=== PATIENT | female | born 1995 | race Caucasian/White ===

== ENCOUNTER 2020-05-24 15:22 | Outpatient (REF) | payer BC, SELFPAY | END 2020-05-24 15:23 | disposition home or self-care (01) | LOC: HO.LAB 15:22 | PROVIDERS: Visit Provider Internal Medicine | DX: Z20.828 Contact with and (suspected) exposure to other viral communicable diseases (principal) | CPT/HCPCS: C9803; U0003 ==

== ENCOUNTER 2020-06-13 13:23 | Outpatient (REF) | payer BC, SELFPAY | END 2020-06-13 13:24 | disposition home or self-care (01) | LOC: HO.LAB 13:23 | PROVIDERS: PCP Internal Medicine; Visit Provider Internal Medicine | DX: Z20.828 Contact with and (suspected) exposure to other viral communicable diseases (principal) | CPT/HCPCS: C9803; U0003 ==

== ENCOUNTER 2022-10-10 11:19 | Outpatient (REF) | payer OTHER, SELFPAY ==
--- NOTE | ~2022-10-10 | XR_ITS ---
EXAMINATION: XR LUMBOSACRAL SPINE CLINICAL INFORMATION: Pain COMPARISON: None available. TECHNIQUE: Three views of the lumbosacral spine. FINDINGS: There is mild curvature of the lumbar spine to the left. Bone alignment is otherwise normal. No fracture or dislocation. Normal disc spaces. Normal paraspinal soft tissues. XR/XR lumbar spine 2-3V IMPRESSION: Mild curvature of the lumbar spine to the left.
--- NOTE | ~2022-10-10 | XR_ITS ---
EXAMINATION: XR THORACOLUMBAR SPINE CLINICAL INFORMATION: Pain COMPARISON: None TECHNIQUE: 3 views of the thoracic spine FINDINGS: Bone alignment is normal. No fracture or dislocation. Normal disc spaces. Normal paraspinal soft tissues. XR/XR thoracic spine 2V IMPRESSION: Unremarkable exam.
[2022-10-10 13:57] LABS: MANUAL DIFF FLAG NO
[2022-10-10 14:05] LABS: Basophils Absolute Auto 0.1 X10*3/uL (0.0-0.2); Eosinophils Absolute Auto 0.7 X10*3/uL (0.0-0.4); Hematocrit 44.1 % (37.0-47.0); Hemoglobin 14.8 g/dl (12.0-16.0); Imm Gran Abs Auto 0.05 X10*3/uL (0.00-0.03); Imm Gran Pct Auto 0.4 % (0.0-0.4); Lymphocytes Absolute Auto 2.4 X10*3/uL (1.2-4.9); Lymphocytes Percent Auto 20.4 % (20-40); Mean Corpuscular HGB Conc 33.6 g/dl (31.0-35.0); Mean Corpuscular Hemoglobin 29.7 pg (27.0-33.0); Mean Corpuscular Volume 88.6 fL (80.0-98.0); Mean Platelet Volume 10.5 fL (9.4-12.3); Monocytes Absolute Auto 0.8 X10*3/uL (0.1-1.2); Monocytes Percent Auto 6.9 % (2-11); Neutrophils Absolute Auto 7.6 x10*3/uL (2.0-8.3); Neutrophils Percent Auto 65.3 % (45-73); Platelet Count 348 X10*3/uL (160-400); Red Blood Count 4.98 X10*6/uL (4.20-5.50); White Blood Count 11.6 X10*3/uL (4.8-10.8)
[2022-10-10 14:22] LABS: Alanine Aminotransferase 13 U/L (0-31); Anion Gap 13 (12-20); Aspartate Amino Transferase 16 U/L (5-31); Blood Urea Nitrogen 10 mg/dL (9-16); Calcium 9.7 mg/dL (8.4-10.2); Carbon Dioxide 24 mmol/L (22-29); Chloride 105 mmol/L (96-108); Cholesterol 166 mg/dL; Estimated Glomerular Filt Rate > 60; Glucose Fasting 97 mg/dL (60-99); HDL Cholesterol 39 mg/dL; LDL Cholesterol Calculated 101 mg/dl; Potassium 4.1 mmol/L (3.3-5.1); Sodium 138 mmol/L (135-145); Triglycerides 132 mg/dL
[2022-10-10 14:42] LABS: TSH reflex Free T4 0.89 uIU/mL (0.32-4.0); Vitamin D 25-OH Total 14.3 ng/mL (>30)
== END 2022-10-10 11:20 | disposition home or self-care (01) ==
LOC: HO.HMGCX 11:19
PROVIDERS: PCP Internal Medicine; Visit Provider Internal Medicine
DX: Z00.00 Encounter for general adult medical examination without abnormal findings (principal); M54.50 Low back pain, unspecified; E66.9 Obesity, unspecified; R53.83 Other fatigue; L40.9 Psoriasis, unspecified; Z83.3 Family history of diabetes mellitus
CPT/HCPCS: 36415; 72070; 72100; 80048; 80061; 82306; 84443; 84450; 84460; 85025

== ENCOUNTER → 2022-11-26 14:22 | Outpatient (BNVA) | payer OTHER, SELFPAY | PROVIDERS: PCP Internal Medicine; Visit Provider Neurological Surgery ==

== ENCOUNTER 2023-01-21 15:04 | Outpatient (REF) | payer OTHER, SELFPAY ==
--- NOTE | ~2023-01-21 | MR_ITS ---
EXAMINATION: MR LUMBAR SPINE WITHOUT CONTRAST CLINICAL INFORMATION: Walking with a limp. Constant low back pain. Right leg pain. Difficulty lying down. COMPARISON: X-ray lumbar spine from 10/10/2022. TECHNIQUE: MRI of the lumbar spine was obtained using routine sequences without contrast. FINDINGS: At the L4-L5 level, there is reduced intradiscal signal and mild disc space narrowing with a slight posterior subluxation. A generalized disc bulge is also evident. There is a large central disc extrusion severely compressing the thecal sac and both L5 nerve root at this level. Hypertrophic facet arthropathy also present. No significant foraminal narrowing evident. At the L5-S1 level, there is reduced intradiscal signal and endplate spurring with a mild diffuse disc bulge. Shallow right paracentral disc protrusion mildly impresses upon the right S1 nerve root. Hypertrophic facet arthropathy present without central canal stenosis or foraminal narrowing. The remaining lower thoracic and lumbar discs are well-hydrated without central canal stenosis or foraminal narrowing. The distal cord, conus tip, and cauda equina nerve roots are normal. There are no compression fractures or anterior subluxations. The marrow signal is fairly homogeneous. Mild leftward curvature of the thoracolumbar spine noted. The paraspinal soft tissues appear normal. MR/MR lumbar spine wo con IMPRESSION: 1. Large central disc extrusion at the L4-L5 level severely compressing the thecal sac and both L5 nerve roots. 2. Mild spondylosis at L5-S1 with a shallow right paracentral disc protrusion mildly impressing upon the right S1 nerve root.
== END 2023-01-21 15:05 | disposition home or self-care (01) ==
LOC: HO.MRI 15:04
PROVIDERS: PCP Internal Medicine; Visit Provider Neurological Surgery
DX: M54.50 Low back pain, unspecified (principal); M41.9 Scoliosis, unspecified
CPT/HCPCS: 72148

== ENCOUNTER 2023-05-16 11:23 | Outpatient (AMB) | payer OTHER, SELFPAY ==
[2023-05-16 11:28] VITALS: BP 122/78; PULSE 72; O2SAT 99; BMI 35.2
--- NOTE | 2023-05-16 11:28 | MHC.PC.OV ---
Vital Signs 05/16/23 11:28 Height 5 ft 1 in Weight 186 lb 6 oz BMI 35.2 BP 122/78 Blood Pressure Location Lt brachial Position Sitting Pulse 72 Pulse Source Pulse Oximeter Pulse Oximetry (%) 99 Oxygen Delivery Method Room Air Intake Visit Reasons: Possible bunion Intake Note: pt has a bone/joint pain on the outside of her left foot that is painful that has gotten worse over the year but this summer she may have injured it that has made the pain even worse pt is also c/o heart burn Allergies amoxicillin Allergy (Unknown, Verified 05/16/23 11:55) unknown cefprozil Allergy (Unknown, Verified 05/16/23 11:55) unknown Medication List - Last Reconciled 05/16/23 by Joceline Mcmahon MD calcium carbonate (Tums) 200 mg PO QID PRN cholecalciferol (vitamin D3) (Vitamin D3) 25 mcg PO DAILY escitalopram oxalate (Lexapro) 20 mg PO DAILY etonogestrel (Nexplanon) subdermal fluocinonide 0.05% 1 appl topical BID [Pepto-Bismol ] Tobacco use date assessed: 05/16/23 Dental Screening Dental Screen Date: 05/16/23 Did you have a dental visit in the last 12 months?: Yes Did you have a dental problem in the last 6 months where you did not have access to dental care?: No Was dental information given to patient?: Patient has dentist HPI Possible bunion HPI Details 28-year-old lady presenting today complaining of pain over left MTP joint. Patient states that she has been having this pain on and off the last year got worse after she started walking on the treadmill, wearing narrow or rubber shoes. Has not been taking any medication for the pain, but has started wearing wider shoes. [facility] Medical History Gastric reflux Scoliosis Vitamin D deficiency Lumbago Family history of diabetes mellitus in father Fatigue Obesity (BMI 30.0-34.9) Psoriasis of scalp Anxiety Annual physical exam Insomnia Surgical History History of appendectomy Family History Father HTN (hypertension) Diabetes mellitus Mental health disorder Brother No problems noted. Sister No problems noted. Sister No problems noted. Sister No problems noted. Sister No problems noted. Social History Household Members: Significant Other Housing: Apartment Alcohol intake: never Patient Tobacco Use Status: Never used Tobacco e-Cigarette/Vaping Use: Never Used service: No Current occupational status: employed Cognitive needs: No Hearing needs: No Vision needs: Yes Questionnaire Thrive Questionnaire Date Thrive assessed: 10/10/22 AUDIT C Alcohol Use Questionnaire (AUDIT-C) 1. How often do you have a drink containing alcohol?: 4 or more times a week 2. How many drinks containing alcohol do you have on a typical day when you are drinking?: 1 or 2 Total Score: 4 POOL-7 AMB Questionnaire POOL-7 Date POOL - 7 assessed: 10/10/22 Source: Developed by Drs. Abdirahman Gill, Denise Bermudez, Damian Delaney and colleagues, with an educational pascual from [employer]. Review of Systems Const All systems reviewed & are unremarkable except as noted in HPI and below Physical exam (Primary Care) Vital Signs: Last Vital Signs Pulse 72 05/16/23 11:28 BP 122/78 05/16/23 11:28 Pulse Ox 99 05/16/23 11:28 Oxygen Delivery Method Room Air 05/16/23 11:28 BMI result Body Mass Index 35.2 Tobacco/Smoking Status: Tobacco use Status Tobacco use date assessed 05/16/23 05/16/23 11:35 Patient Tobacco Use Status Never used Tobacco 05/16/23 11:35 e-Cigarette/Vaping Use Never Used 05/16/23 11:35 Thrive Assessment: Date of Thrive Assessment Date Thrive assessed 10/10/22 05/16/23 11:35 Const General: comfortable and no acute distress Nutritional Appearance: obese Orientation/consciousness: patient oriented x3 Limitations: no limitations Skin General skin exam: no rashes or lesions noted Neuro General: patient oriented x3 Extrem Other: Slight swelling and erythema over left MTP joint, area slightly tender to palpation Assessment and Plan Assessment & Plan (1) Sprain of metatarsophalangeal joint of left great toe: Code(s): S93.522A - Sprain of metatarsophalangeal joint of left great toe, initial encounter Plan: May try massaging Aleve cream to affected area to 2 3 times a day as needed. Avoid wearing wear shoes, wear wider open shoes. Return to the clinic if pain worsens Coding Level of Care Code Est Pt Level 3 (24269) Diagnoses Sprain of metatarsophalangeal joint of left great toe S93.522A
== END 2023-05-16 11:52 | disposition home or self-care (01) ==
PROVIDERS: PCP Internal Medicine; Visit Provider Internal Medicine
DX: S93.522A Sprain of metatarsophalangeal joint of left great toe, initial encounter (principal)
CPT/HCPCS: 99213

== ENCOUNTER 2023-06-05 06:46 | Day surgery (SDC) | payer OTHER, SELFPAY ==
[2023-05-19 11:45] VITALS: BP 127/60; PULSE 83; RESP 16; O2SAT 97; BMI 34.9
--- NOTE | 2023-05-19 12:09 | HO.ANESPROP2 ---
Documented by User: Shruthi Ram NP 05/19/23 12:17 HPI - Anesthesia Eval Consult details Narrative: 28yo F for L4-5 MicroLumbar discectomy No recent illness No CP/SOB with >4 mets. Activity only limited to back/LE pain GERD. With prn TUMS, pepto Reports slow to wake after GA at age 13 for ex lap PMFSH Active Problems All Active Problems Scoliosis (Acute) Vitamin D deficiency (Acute) Lumbago (Acute) Family history of diabetes mellitus in father (Acute) Fatigue (Acute) Obesity (BMI 30.0-34.9) (Acute) Psoriasis of scalp (Acute) Anxiety (Acute) Annual physical exam (Acute) Past Medical History Medical History Gastric reflux Scoliosis Vitamin D deficiency Lumbago Family history of diabetes mellitus in father Fatigue Obesity (BMI 30.0-34.9) Psoriasis of scalp Anxiety Annual physical exam Insomnia Family History Family History Father HTN (hypertension) Diabetes mellitus Mental health disorder Brother No problems noted. Sister No problems noted. Sister No problems noted. Sister No problems noted. Sister No problems noted. Surgical History Surgical History (Updated 05/19/23 @ 12:04 by Jaqueline Berrios RN) Hx of lymph node excision Hx of esophagogastroduodenoscopy Hx of colonoscopy History of appendectomy Social History Social History (Updated 05/19/23 @ 12:11 by Jaqueline Berrios RN) Household Members: Significant Other Housing: Apartment Are you a primary career resource technician to a significant other at home: No Do you presently have visiting nurse or other home services: No Alcohol intake: never Patient Tobacco Use Status: Never used Tobacco e-Cigarette/Vaping Use: Never Used Use of substances other than those prescribed or required for medical reasons: Yes Substance Use Type: Marijuana Substance Use Frequency: Occasionally Have you been hit, kicked, punched, or otherwise hurt by someone within the past year? If so, by whom?: No Are you DNR?: No Advance Directives: No Advance Directives Information Provided: Yes Advance Directives on File: No Recently lost weight without trying: No Nutrition Risks: No Nutritional Risk Patient : No FDLMP: last April : No Poor oral hygiene: No service: No Current occupational status: employed Cognitive needs: No Hearing needs: No Vision needs: Yes Meds Allergies Allergy/AdvReac Type Severity Reaction Status Date / Time amoxicillin Allergy Severe Hives, Verified 05/19/23 12:01 rash. ? throat closing cefprozil Allergy Severe hives,rash Verified 05/19/23 11:59 cephalexin Allergy Severe Hives,rash Verified 05/19/23 12:01 Home Medications Medication Instructions Recorded Confirmed Last Taken Type etonogestrel 68 mg subdermal subdermal 10/10/22 10/10/22 Unknown History implant (Nexplanon) fluocinonide 0.05 % topical cream 1 appl topical BID 10/10/22 10/10/22 Unknown History Pepto-Bismol 05/15/23 05/15/23 Unknown History calcium carbonate 200 mg calcium 200 mg PO QID PRN Gastric Reflux 05/15/23 05/15/23 Unknown History (500 mg) chewable tablet (Tums) cholecalciferol (vitamin D3) 25 50 mcg PO DAILY 05/15/23 05/19/23 Unknown History mcg (1,000 unit) capsule (Vitamin D3) escitalopram oxalate 20 mg tablet 20 mg PO DAILY 05/15/23 05/15/23 Unknown History (Lexapro) Exam Height,Weight and Vital Signs: Height 5 ft 1 in Weight 83.9 kg Last Vital Signs Pulse 83 05/19/23 11:45 Resp 16 05/19/23 11:45 BP 127/60 05/19/23 11:45 Pulse Ox 97 05/19/23 11:45 O2 Del Method Room Air 05/19/23 11:45 Pertinent Lab Results Pertinent Lab Results: Laboratory Tests 10/10/22 11:26 WBC 11.6 H Hgb 14.8 Hct 44.1 Plt Count 348 Sodium 138 Potassium 4.1 Chloride 105 Carbon Dioxide 24 BUN 10 Creatinine 0.76 Airway Loose/Missing/Broken Teeth: Yes (Right lower molar missing, 1 x crowned molar) Heart: RRR Lungs: CTAB Assessment and Plan Assessment Anesthesia Assessment: Anesthesia Plan Discussed and PAT Visit Documented by User: Dickson Brennan MD 06/05/23 07:31 PMFSH Active Problems All Active Problems Scoliosis (Acute) Vitamin D deficiency (Acute) Lumbago (Acute) Family history of diabetes mellitus in father (Acute) Fatigue (Acute) Obesity (BMI 30.0-34.9) (Acute) Psoriasis of scalp (Acute) Anxiety (Acute) Annual physical exam (Acute) Past Medical History Medical History Gastric reflux Scoliosis Vitamin D deficiency Lumbago Family history of diabetes mellitus in father Fatigue Obesity (BMI 30.0-34.9) Psoriasis of scalp Anxiety Annual physical exam Insomnia Family History Family History Father HTN (hypertension) Diabetes mellitus Mental health disorder Brother No problems noted. Sister No problems noted. Sister No problems noted. Sister No problems noted. Sister No problems noted. Family history of problems with anesthesia: No Surgical History Surgical History (Updated 05/19/23 @ 12:04 by Jaqueline Berrios RN) Hx of lymph node excision Hx of esophagogastroduodenoscopy Hx of colonoscopy History of appendectomy History of Problems with Anesthesia: No Social History Social History (Updated 05/19/23 @ 12:11 by Jaqueline Berrios RN) Household Members: Significant Other Housing: Apartment Are you a primary career resource technician to a significant other at home: No Do you presently have visiting nurse or other home services: No Alcohol intake: never Patient Tobacco Use Status: Never used Tobacco e-Cigarette/Vaping Use: Never Used Use of substances other than those prescribed or required for medical reasons: Yes Substance Use Type: Marijuana Substance Use Frequency: Occasionally Have you been hit, kicked, punched, or otherwise hurt by someone within the past year? If so, by whom?: No Are you DNR?: No Advance Directives: No Advance Directives Information Provided: Yes Advance Directives on File: No Recently lost weight without trying: No Nutrition Risks: No Nutritional Risk Patient : No FDLMP: last April : No Poor oral hygiene: No service: No Current occupational status: employed Cognitive needs: No Hearing needs: No Vision needs: Yes Meds Allergies Allergy/AdvReac Type Severity Reaction Status Date / Time amoxicillin Allergy Severe Hives, Verified 05/19/23 12:01 rash. ? throat closing cefprozil Allergy Severe hives,rash Verified 05/19/23 11:59 cephalexin Allergy Severe Hives,rash Verified 05/19/23 12:01 Home Medications Medication Instructions Recorded Confirmed Last Taken Type etonogestrel 68 mg subdermal subdermal 10/10/22 10/10/22 Unknown History implant (Nexplanon) fluocinonide 0.05 % topical cream 1 appl topical BID 10/10/22 10/10/22 Unknown History Pepto-Bismol 05/15/23 05/15/23 Unknown History calcium carbonate 200 mg calcium 200 mg PO QID PRN Gastric Reflux 05/15/23 05/15/23 Unknown History (500 mg) chewable tablet (Tums) cholecalciferol (vitamin D3) 25 50 mcg PO DAILY 05/15/23 05/19/23 Unknown History mcg (1,000 unit) capsule (Vitamin D3) escitalopram oxalate 20 mg tablet 20 mg PO DAILY 05/15/23 05/15/23 Unknown History (Lexapro) Assessment and Plan Final Anesthetic Review Family History of Problems with Anesthesia: No History of Problems with Anesthesia: No NPO: Yes ASA Class: II Final Preanesthetic Review: No Changes in Pt Med Stat, Meds/Allgs Chart Reviewed, Consent Obtained/Reviewed and Anes Risks/Benef Reviewed Patient Risk: Intermediate Procedure Risk: Intermediate Anesthetic Plan Anesthetic Plan: GA and Agree w/ Assess. and Plan Disposition: Standard PACU
--- NOTE | ~2023-06-05 | FL_ITS ---
EXAMINATION: XR FLUOROSCOPY WITH IMAGES CLINICAL INFORMATION: L4-L5 discectomy, right. COMPARISON: None available. TECHNIQUE: Fluoroscopy Supervised By: Dr. Jose De Jesus Bruno. Fluoroscopy Time: 0.1 minute. Cumulative Dose: 4.03 mGy. DAP: 0.0701 Gycm2. Images: 2. FINDINGS: Images demonstrate surgical instruments and probes posterior to the L4-L5 disc space FL/FL guidance in OR IMPRESSION: Fluoroscopy guidance for lumbar spine surgery
--- NOTE | 2023-06-05 07:18 | P.HPSUR_ITS ---
Pre-Procedural Eval Section A Date of Service: 06/05/23 The patient is an INPATIENT: No Changes since office visit: No Cold of Flu in the past 2 weeks, No New Medical Problems, No Changes in Medication and No Patient answered all questions The History & Physical has been completed within 30 days and I have reviewed it.: No Section B Chief Complaint: Scoliosis,low back pain, Allergies: Allergies Allergy/AdvReac Type Severity Reaction Status Date / Time amoxicillin Allergy Severe Hives, Verified 05/19/23 12:01 rash. ? throat closing cefprozil Allergy Severe hives,rash Verified 05/19/23 11:59 cephalexin Allergy Severe Hives,rash Verified 05/19/23 12:01 Review of Systems Sugical H&P ROS: Negative: Constitution, Cardiovascular, Respiratory, Neurological, Psychiatric, Hem-Onc, Allergic/Immunologic, Gastrointestinal, Genitourinary, Musculoskeletal, Integumentary, Endocrine and Eyes /Ears/Nose/Throat Exam Surgical H&P Exam: Not Evaluated: HEENT, Not Evaluated: Heart, Not Evaluated: Lungs, Not Evaluated: Extremities, Not Evaluated: Abdomen, Not Evaluated: Skin and Not Evaluated: Neurological Plan Diagnosis/Plan: Unchanged I have reviewed the history and physical and performed a pertinent physical examination on my patient. No changes have occurred unless specified. right L4-5 lumbar microdiskectomy Time Spent With Patient Time: Total time managing care of this patient today __9__ minutes.
[2023-06-05 07:25] LABS: UPreg QC Valid YES; Urine Pregnancy NEGATIVE (NEGATIVE)
[2023-06-05 07:46] VITALS: BP 117/74; PULSE 80; RESP 16; TEMP 37.1; O2SAT 97
[2023-06-05] MEDS: Gabapentin 300 MG CAPSULE PO (08:03)
[2023-06-05] MEDS: methocarbamoL 750 MG TABLET PO (08:09)
[2023-06-05] MEDS: vancomycin HCL 1,500 MG in 0.9 % Sodium Chloride 500 ML 333.33 MG IV (08:29)
[2023-06-05] MEDS: Lactated Ringers 1,000 ML 100 ML IVCONT (08:30)
--- NOTE | 2023-06-05 10:07 | W.PM.OPN ---
Operative Note Operative Note Date of Service: 06/05/23 Narrative: Preoperative diagnosis: L5 lumbar radiculopathy due to L4-5 disc herniation Postoperative diagnosis: Same Procedure: L4-5 lumbar microdiskectomy with microscope, right-sided approach Surgeon: Jose De Jesus Bruno MD, PhD Passenger Barge Master: goldy Voss This 28-year-old female suffering from a bilateral lumbar radiculopathy with the right side is more affected than the left side. An MRI shows a large extruded disc herniation compromising both nerve roots. The patient was offered a lumbar microdiskectomy to decompress the nerve root. The procedure complications were explained. The patient was consented. The patient was brought to the operating room and endotracheally intubated. The patient was turned in a prone position on the Thaddeus frame. Prepping and draping was done followed by time-out. A mid lumbar incision was made followed by release of the paravertebral muscles on the [] side to expose the [] interspace. An intraoperative x-rays obtained to confirm the correct level. The microscope was brought in. A L4 laminotomy was done followed by opening of the flavum ligament. The L5 nerve root was identified and retracted medially to expose the L4-5 disc space. I could palpate a disc herniation medial from the L5 nerve root, which I carefully removed with a pituitary. The disc space was inspected and any residual disc fragments were removed. This resulted in an excellent decompression of the L5 nerve root. Hemostasis was done. The microscope was removed. Marcaine was injected intramuscularly.The incision was closed in two layers. Steri-Strips used to approximate seizure. An op-site were taken there was used to cover the incision. All sponge and needle counts were correct. Patient was extubated and transported in stable condition to recovery room. this procedure was done with the aid of a physician construction project assistant who performed the initial exposure until the microscope was brought in and performed the closure of the incision. Anesthesia: General Blood loss: 10 mL Complications: None Specimen: None Disposition: Discharge home
--- NOTE | 2023-06-05 10:13 | PM.DS ---
DS: Providers Provider Date of Service: 06/05/23 Date of discharge: 06/05/23 Primary care physician: Joceline Mcmahon MD Admitting clinician: Jose De Jesus Bruno DS: Diagnosis Discharge Diagnosis (1) Lumbar disc herniation: Status: Acute DS: Summary Time Attestation Discharge coordination time: Less than 30 minutes Quality: Safe Use of Opioids Does Pt have an Active Cancer Diagnosis on the Problem List?: No Quality: Stroke Does the patient have a stroke diagnosis?: No Physical Exam Vital Signs: Vital Signs: Last Vital Signs Temp 98.8 F 06/05/23 07:46 Pulse 80 06/05/23 07:46 Resp 16 06/05/23 07:46 BP 117/74 06/05/23 07:46 Pulse Ox 97 06/05/23 07:46 O2 Del Method Room Air 06/05/23 07:46 BMI result Body Mass Index 34.9 DS: Data Data Completed and Pending Labs on day of discharge: Laboratory Results - last 24 hr 06/05/23 07:13 Urine Test NEGATIVE Discharge Plan Discharge Patient Disposition: Home, Self-Care Referrals: Joceline Mcmahon MD [Primary Care Provider] - 1 Week Discharge Medications: New docusate sodium [Colace] 100 mg capsule 100 mg PO BID Qty: 20 0RF oxycodone 5 mg tablet 5 mg PO Q4H PRN (Reason: pain) Qty: 30 0RF Rx Instructions: Partial Fill upon patient request. Continued cholecalciferol (vitamin D3) [Vitamin D3] 25 mcg (1,000 unit) Capsule 50 mcg PO DAILY escitalopram oxalate [Lexapro] 20 mg Tablet 20 mg PO DAILY calcium carbonate [Tums] 200 mg calcium (500 mg) Tablet,Chewable 200 mg PO QID PRN (Reason: Gastric Reflux) Pepto-Bismol fluocinonide 0.05 % cream 1 appl topical BID Nexplanon 68 mg implant subdermal Discharge Orders: Discharge Order (Routine); Ordered 06/05/23 Ordered By: Timo Alvarado Diet: Advance to usual diet Activity on Discharge: As tolerated Activity Restrictions/Additional Instructions: After your spinal surgery we ask you to observe the following restrictions/guidelines: Activity: It is normal to feel some discomfort as you increase your activity, but that will improve with time. We ask you avoid heavy lifting or acitivities that cause pain. As a general rule, 8lbs is a safe limit for lifting right after surgery. Walk as much as you feel comfortable but not to exhaustion. You will feel extra tired the first few days after surgery. Stay well hydrated. It is OK to walk up and down stairs You may return to driving when you are off narcotics (such as vicodin, oxycodone, dilaudid, etc), and you are back to normal functional capacity. If you have any concerns please check with office before driving. Return to work is specific to each patient and each surgery, so please speak with your doctor/PA at first follow up. Please bring paperwork such as FMLA at that time if you need it filled out. Medications: For optimum pain control, it is best to start with a combination of 500 mg of Tylenol every 4 hours with 600 mg of Motrin every 8 hours, and use narcotics as needed in between for breakthrough pain. We will give you a short supply of narcotics after surgery (usually one weeks worth). If you need more please call the office but do not use more than prescribed. You will need to give our office 48 hours notice if you need narcotics refilled and we do not fill narcotics on weekends or evenings. If you are on a narcotic, it is a good idea to take a stool softener such as colace or senna to avoid constipation If you take blood thinner such as aspirin, Plavix, Coumadin, Effient, Eliquis etc for conditions such as Afib, DVT, Pulmonary embolus, coronary disease, stents etc please speak with your surgeon about specific details as to when you can resume these medications. You can resume NSAIDs on post op day 1 (eg: Motrin, Naproxen, etc). Follow up: Please call the office, , after surgery to arrange a 3 week follow up for wound check. Wound Care: You may remove your dressing on the first day after surgery. You may leave open to air. Please do not remove the steri strips underneath. they will fall off on their own in one week. IT IS NORMAL FOR THE WOUND TO OOZE OR BE BLOODY FOR A FEW DAYS AFTER SURGERY. IF THIS HAPPENS JUST PLACE NEW DRESSING OVER IT TO AVOID STAINING CLOTHES. You may shower on post op day # 1 We ask that you do not let the water soak the wound. If it does get wet, just towel dry lightly. Please do not scrub your incision or place any type of chemical/ointment on the wound. No tub baths, pools or jacuzzis for one month. If you have any leaking or redness from your wound, or fevers, please call office
[2023-06-05 10:30] VITALS: BP 123/61; PULSE 89; RESP 18; TEMP 36.6; O2SAT 95
[2023-06-05 10:35] VITALS: BP 122/66; PULSE 84; RESP 22; O2SAT 100
[2023-06-05 10:40] VITALS: BP 129/67; PULSE 83; RESP 20; O2SAT 94
[2023-06-05 10:45] VITALS: BP 123/68; PULSE 81; RESP 20; O2SAT 93
[2023-06-05] MEDS: oxyCODONE HCl Immed Release 5 MG TABLET PO (10:46)
[2023-06-05 11:00] VITALS: BP 112/49; PULSE 76; RESP 20; TEMP 36.1; O2SAT 95
== END 2023-06-05 12:00 | disposition home or self-care (01) ==
PROVIDERS: Nurse Practitioner; PCP Internal Medicine; Visit Provider Neurological Surgery
PROC: (CPT 63030; principal; 2023-06-05 09:10)
DX: M54.16 Radiculopathy, lumbar region (principal); M54.50 Low back pain, unspecified; M41.9 Scoliosis, unspecified; M79.604 Pain in right leg; E55.9 Vitamin D deficiency, unspecified; R53.83 Other fatigue; E66.9 Obesity, unspecified; F41.9 Anxiety disorder, unspecified; Z79.899 Other long term (current) drug therapy; Z88.1 Allergy status to other antibiotic agents
CPT/HCPCS: 63030; 81025; J0131; J1100; J1885; J2371; J2405; J2704; J3371

== ENCOUNTER → 2023-06-05 06:46 | Outpatient (BNV) | payer OTHER, SELFPAY | PROVIDERS: PCP Internal Medicine; Visit Provider Neurological Surgery | DX: M51.26 Other intervertebral disc displacement, lumbar region (principal) | CPT/HCPCS: 63030; 99499 ==

== ENCOUNTER 2023-06-12 20:59 | Emergency (ER) | payer OTHER, SELFPAY ==
[2023-06-12 21:34] VITALS: BP 118/86; PULSE 78; RESP 18; TEMP 36.6; O2SAT 96; BMI 34.6
--- NOTE | 2023-06-12 23:29 | ED_ITS ---
HPI - General Adult General Chief complaint: Wound/Laceration Stated complaint: Back surg x 7 days stiches reopened Time Seen by Provider: 06/12/23 23:11 Source: patient, RN notes reviewed and old records reviewed Mode of arrival: ambulatory Limitations: no limitations History of Present Illness HPI narrative: 28-year-old female presents for evaluation of a wound check. Patient reports that she had lumbar surgery on 06/05/[address] Bruno She had an L4-L5 lumbar microdiskectomy Patient reports that just prior to arrival she had 1 states over not to be lumbar spinal wound She denies any fevers, chills pain No significant pain. She reports a dull soreness to the area that has been constant since the surgery No drainage from the area Related Data Home Medications Medication Instructions Recorded Confirmed etonogestrel 68 mg subdermal subdermal 10/10/22 10/10/22 implant (Nexplanon) fluocinonide 0.05 % topical cream 1 appl topical BID 10/10/22 10/10/22 Pepto-Bismol 05/15/23 05/15/23 calcium carbonate 200 mg calcium 200 mg PO QID PRN Gastric Reflux 05/15/23 05/15/23 (500 mg) chewable tablet (Tums) cholecalciferol (vitamin D3) 25 50 mcg PO DAILY 05/15/23 05/19/23 mcg (1,000 unit) capsule (Vitamin D3) escitalopram oxalate 20 mg tablet 20 mg PO DAILY 05/15/23 05/15/23 (Lexapro) Previous Rx's Medication Instructions Recorded docusate sodium 100 mg capsule 100 mg PO BID #20 caps 06/05/23 (Colace) oxycodone 5 mg tablet 5 mg PO Q4H PRN pain #30 tabs 06/05/23 Allergies Allergy/AdvReac Type Severity Reaction Status Date / Time amoxicillin Allergy Severe Hives, Verified 06/12/23 21:38 rash. ? throat closing cefprozil Allergy Severe hives,rash Verified 06/12/23 21:38 cephalexin Allergy Severe Hives,rash Verified 06/12/23 21:38 Review of Systems Constitutional: Constitutional: Denies chills, Denies fever(s) and Denies weakness Eyes: Eyes: Denies blurry vision Cardiovascular: Cardiovascular: Denies chest pain and Denies dyspnea Respiratory: Respiratory: Denies cough and Denies dyspnea Gastrointestinal: Gastrointestinal: Denies abdominal pain, Denies nausea and Denies vomiting Musculoskeletal: Musculoskeletal: Reports back pain and Denies tingling Integumentary/Breasts: Skin/Breast: Denies rash Neurologic: Denies tingling, Denies paresthesias and Denies weakness Psychiatric: Psychiatric: Denies suicidal ideation PMFSH Past Medical History Medical History (Updated 06/12/23 @ 23:32 by Mathew Conley) Gastric reflux Scoliosis Vitamin D deficiency Lumbago Family history of diabetes mellitus in father Fatigue Obesity (BMI 30.0-34.9) Psoriasis of scalp Anxiety Annual physical exam Insomnia Surgical History (Updated 05/19/23 @ 12:04 by Jaqueline Berrios, RN) Hx of lymph node excision Hx of esophagogastroduodenoscopy Hx of colonoscopy History of appendectomy Family History Family History Father HTN (hypertension) Diabetes mellitus Mental health disorder Brother No problems noted. Sister No problems noted. Sister No problems noted. Sister No problems noted. Sister No problems noted. Social History Social History (Updated 05/19/23 @ 12:11 by Jaqueline Berrios RN) Household Members: Significant Other Housing: Apartment Are you a primary doggy daycare activities director to a significant other at home: No Do you presently have visiting nurse or other home services: No Alcohol intake: never Comment: counts correct Patient Tobacco Use Status: Never used Tobacco e-Cigarette/Vaping Use: Never Used Substance Use Type: Marijuana Advance Directives: No Advance Directives Information Provided: No service: No Current occupational status: employed Cognitive needs: No Hearing needs: No Vision needs: Yes Physical Exam ED Vital Signs: Vital Signs - 24 hr 06/12/23 21:34 Temperature 97.9 F Pulse Rate 78 Respiratory Rate 18 Blood Pressure 118/86 Pulse Oximetry 96 Oxygen Delivery Method Room Air BMI result Body Mass Index 34.6 Const General: healthy appearing, comfortable, no acute distress, alert and awake Nutritional Appearance: well nourished Orientation/consciousness: patient oriented x3 HENMT Head: Yes normocephalic and Yes atraumatic Eyes Eyelids: Yes eyelids normal Conjunctivae: conjunctivae normal Sclerae: sclerae normal Corneas: corneas normal Pupils: Equal, round and reactive pupils present EOM: EOMs intact bilaterally Neck Neck: Yes full ROM Resp Effort & Inspection: normal respiratory effort, able to speak in complete sentences and not labored GI Inspection: No distended Palpation (GI): Soft to palpation, not firm, nontender, no guarding and not rigid Back/Spine/Pelvis Other: Patient has a 3 cm healing wound to the lumbar spine. The 2nd most suture has been opened. There is only approximately 2 mm area between the 2 wound edges. Sutures 1., 3, [address]. No drainage from the wound, no surrounding erythema Skin General skin exam: elasticity normal Neuro General: patient oriented x3 Cranial nerves: Yes Equal, round and reactive pupils present and Yes Bilaterally intact EOM present Cognition (Neuro): normal cognition Extrem Other: Moving all extremities well without any obvious deformities Medical Decision Making Medical Decision Making MDM Narrative: 28-year-old female presents for evaluation a wound check. One of her sutures has removed, the wound is still well approximated. Do not recommend any further closure. The patient was encouraged to keep the area clean and dry. She will follow-up with Neurosurgery office tomorrow Differential Diagnosis Differential Diagnoses: The differential diagnosis associated with the presentation includes Wound check Wound dehiscence Laceration Suture removal Discharge Plan Discharge Clinical Impression: Visit for wound check Patient Disposition: Home, Self-Care Additional Instructions: One of your sutures spontaneously open today. Three of them remain in place. The wound is still well approximated. I do not recommend any other form of closure. Keep the area clean and dry Call the office of Dr. Bruno' tomorrow morning to let them know Prescriptions: No Action cholecalciferol (vitamin D3) [Vitamin D3] 25 mcg (1,000 unit) Capsule 50 mcg PO DAILY escitalopram oxalate [Lexapro] 20 mg Tablet 20 mg PO DAILY calcium carbonate [Tums] 200 mg calcium (500 mg) Tablet,Chewable 200 mg PO QID PRN (Reason: Gastric Reflux) Pepto-Bismol docusate sodium [Colace] 100 mg capsule 100 mg PO BID Qty: 20 0RF oxycodone 5 mg tablet 5 mg PO Q4H PRN (Reason: pain) Qty: 30 0RF Rx Instructions: Partial Fill upon patient request. fluocinonide 0.05 % cream 1 appl topical BID Nexplanon 68 mg implant subdermal
[2023-06-12 23:42] VITALS: BP 116/66; PULSE 66; RESP 14; TEMP 36.8
== END 2023-06-12 23:45 | disposition home or self-care (01) ==
PROVIDERS: Emergency Provider Emergency Medicine; PCP Internal Medicine
DX: Z48.00 Encounter for change or removal of nonsurgical wound dressing (principal)
CPT/HCPCS: 99282; 99284

== ENCOUNTER 2023-06-13 13:57 | Outpatient (AMB) | payer OTHER, SELFPAY ==
--- NOTE | 2023-06-13 14:27 | HO.SPINEOV ---
Intake Intake Visit Reasons: ED f/up Allergies amoxicillin Allergy (Severe, Verified 06/12/23 21:38) Hives, rash. ? throat closing cefprozil Allergy (Severe, Verified 06/12/23 21:38) hives,rash cephalexin Allergy (Severe, Verified 06/12/23 21:38) Hives,rash Assessment & Plan Assessment & Plan (1) S/P spinal surgery: Code(s): Z98.890 - Other specified postprocedural states Plan POD: 8 Procedure: R sided L4-5 lumbar microdiskectomy Suzette is a 28-year-old female who is status post right-sided L4-5 lumbar microdiskectomy for lumbar radiculopathy. She reports that she was sitting at home yesterday on the couch watching a movie with her when she felt a cold liquid sensation on her low back after turning her body to grab something. Her inspected the incision site on her low back and was concerned that her stitches broken her wound opened up. She was seen in the emergency room last night, and the provider they recommended no further intervention as the wound was well approximated. Upon examination today her wound appears generally unremarkable. There is a very small linear area of scabbing which is very normal for a 2-3 cm incision site. A small area of broken scab was noted toward the top of the incision site. I ended up re-approximating the area with Steri-Strips after. She was encouraged that this is very normal for her surgery. Rufino Bruno MD,PhD [facility] Coding Level of Care Code Global (78975) Diagnoses S/P spinal surgery Z98.890
== END 2023-06-13 14:28 | disposition home or self-care (01) ==
PROVIDERS: PCP Internal Medicine; Visit Provider Physician Assistant
DX: Z98.890 Other specified postprocedural states (principal)
CPT/HCPCS: 99024

== ENCOUNTER → 2023-06-13 13:57 | Outpatient (BNVA) | payer OTHER, SELFPAY | PROVIDERS: PCP Internal Medicine; Visit Provider Physician Assistant ==

== ENCOUNTER 2023-06-27 11:37 | Outpatient (AMB) | payer OTHER, SELFPAY ==
--- NOTE | 2023-06-27 11:55 | HO.SPINEOV ---
Intake Intake Visit Reasons: 1st post op visit Allergies amoxicillin Allergy (Severe, Verified 06/12/23 21:38) Hives, rash. ? throat closing cefprozil Allergy (Severe, Verified 06/12/23 21:38) hives,rash cephalexin Allergy (Severe, Verified 06/12/23 21:38) Hives,rash Assessment & Plan Assessment & Plan (1) S/P spinal surgery: Code(s): Z98.890 - Other specified postprocedural states Plan Procedure: R sided L4-5 lumbar microdiskectomy Suzette comes in today for her 2nd postoperative visit. She reports she is very satisfied with the surgery and feels much better than she did preoperatively. The patient reports she is up walking around and completing the majority of her ADLs. She has no numbness/tingling/weakness/burning. No issues with ambulation. No other concerns. No neurological deficits. Patient is able to ambulate well, rises from a seated position without difficulty. Incision sites are closed and well healed, well approximated after last visit. There is no need for further routine follow-up for this patient. I provided her with a return to work note. She was advised she may always return to see us if she needs to in the future for any new symptoms. Rufino Bruno MD,PhD [facility] Coding Level of Care Code Global (49716) Diagnoses S/P spinal surgery Z98.890
== END 2023-06-27 12:13 | disposition home or self-care (01) ==
PROVIDERS: PCP Internal Medicine; Visit Provider Physician Assistant
DX: Z98.890 Other specified postprocedural states (principal)
CPT/HCPCS: 99024

== ENCOUNTER → 2023-06-27 11:37 | Outpatient (BNVA) | payer OTHER, SELFPAY | PROVIDERS: PCP Internal Medicine; Visit Provider Physician Assistant ==

== ENCOUNTER 2023-09-26 08:24 | Outpatient (AMB) | payer OTHER, SELFPAY ==
[2023-09-26 08:39] VITALS: BP 92/60; PULSE 81; O2SAT 98; BMI 36.3
--- NOTE | 2023-09-26 08:39 | A.OFFPC_ITS ---
Vital Signs 09/26/23 08:39 Height 5 ft 1 in Weight 192 lb BMI 36.3 BP 92/60 Blood Pressure Location Lt brachial Position Sitting Pulse 81 Pulse Source Pulse Oximeter Pulse Oximetry (%) 98 Oxygen Delivery Method Room Air Intake Visit Reasons: f/u lexapro med Intake Note: Pt is here today for a f/u on her lexapro Allergies amoxicillin Allergy (Severe, Verified 09/26/23 08:55) Hives, rash. ? throat closing cefprozil Allergy (Severe, Verified 09/26/23 08:55) hives,rash cephalexin Allergy (Severe, Verified 09/26/23 08:55) Hives,rash Medication List - Last Reconciled 09/26/23 by Joceline Mcmahon MD calcium carbonate (Tums) 200 mg PO QID PRN cholecalciferol (vitamin D3) (Vitamin D3) 50 mcg PO DAILY docusate sodium (Colace) 100 mg PO BID escitalopram oxalate (Lexapro) 20 mg PO DAILY fluocinonide 0.05% 1 appl topical BID [Pepto-Bismol ] Tobacco use date assessed: 09/26/23 Dental Screening Dental Screen Date: 09/26/23 Did you have a dental visit in the last 12 months?: Yes Did you have a dental problem in the last 6 months where you did not have access to dental care?: No Was dental information given to patient?: Patient has dentist HPI f/u lexapro med HPI Details 28-year-old lady with anxiety disorder, currently on escitalopram 20 mg once a day, here today for her follow-up. She patient states that she has been seeing a psychiatrist online and would like to see if she can just continue seeing me instead. Requesting a refill on her escitalopram 20 mg daily which has been helping control her anxiety symptoms. She takes it in the morning and does notice that she gets tired easily when she takes it in the morning, advised to take it now at bedtime.. She also has obesity, trying to lose weight with diet and exercise. Has history of vitamin-D deficiency, now currently taking cholecalciferol 50 mcg once a day . [facility] Medical History (Updated 09/26/23 @ 09:11 by Joceline Mcmahon MD) Gastric reflux Scoliosis Vitamin D deficiency Lumbago Family history of diabetes mellitus in father Fatigue Obesity (BMI 30.0-34.9) Psoriasis of scalp Anxiety Annual physical exam Insomnia Surgical History (Updated 09/26/23 @ 09:11 by Joceline Mcmahon MD) Hx of lumbar discectomy Hx of lymph node excision Hx of esophagogastroduodenoscopy Hx of colonoscopy History of appendectomy Family History Father HTN (hypertension) Diabetes mellitus Mental health disorder Brother No problems noted. Sister No problems noted. Sister No problems noted. Sister No problems noted. Sister No problems noted. Social History (Updated 05/19/23 @ 12:11 by Jaqueline Berrios RN) Household Members: Significant Other Housing: Apartment Are you a primary transitional care liaison to a significant other at home: No Do you presently have visiting nurse or other home services: No Alcohol intake: never Comment: counts correct Patient Tobacco Use Status: Never used Tobacco e-Cigarette/Vaping Use: Never Used Substance Use Type: Marijuana service: No Current occupational status: employed Cognitive needs: No Hearing needs: No Vision needs: Yes Questionnaire PHQ-9 Over the last 2 weeks, how often have you been bothered by any of the following problems? 1. Little interest or pleasure in doing things: not at all 2. Feeling down, depressed, or hopeless: not at all 3. Trouble falling or staying asleep, or sleeping too much: not at all 4. Feeling tired or having little energy: several days 5. Poor appetite or overeating: not at all 6. Feeling bad about yourself - or that you are a failure or have let yourself or your family down: not at all 7. Trouble concentrating on things, such as reading the newspaper or watching television: not at all 8. Moving or speaking so slowly that other people could have noticed. Or the opposite - being so fidgety or restless that you have been moving around a lot more than usual: not at all 9. Thoughts that you would be better off or of hurting yourself in some way: not at all Total score: 1 Depression Screening Interpretation: Negative Depression Screening Done: Yes 50388 - PHQ-9 Billing: Yes Source: Developed by Drs. Abdirahman Gill, Denise B.Damian Snider and colleagues, with an educational pascual from [email or web address]. Thrive Questionnaire Date Thrive assessed: 09/26/23 I am a: Patient What is your living situation today?: I have a steady place to live Within the past 12 months, did the food you bought not last and you didn't have the money to get more?: Never true Within the past 12 months, did you worry whether your food would run out before you got money to buy more?: Never true Do you have trouble paying for medicines?: No Do you have trouble getting transportation to medical appointments?: No Do you have trouble paying your heating and electricity bill?: No Do you have trouble taking care of your child, family member or friend?: No Do you have trouble with day-to-day activities such as bathing, preparing meals, shopping, managing finances, etc.?: No Are you currently unemployed and looking for a job?: No Are you interested in more education?: No THRIVE Score: 0 AUDIT C Alcohol Use Questionnaire (AUDIT-C) 1. How often do you have a drink containing alcohol?: Monthly or less 2. How many drinks containing alcohol do you have on a typical day when you are drinking?: 1 or 2 3. How often do you have six or more drinks on one occasion?: Never Total Score: 1 POOL-7 AMB Questionnaire POOL-7 Date POOL - 7 assessed: 09/26/23 Feeling nervous, anxious, or on edge: 0 = Not at all Not being able to stop or control worryin = Several days Worrying too much about different things: 0 = Not at all Trouble relaxin = Not at all Being so restless that it is hard to sit still: 0 = Not at all Becoming easily annoyed or irritable: 1 = Several days Feeling afraid as if something awful might happen: 0 = Not at all Total POOL-7 score (0-4 normal; 5-9 mild; 10-14 moderate; 15-21 severe): 2 Source: Developed by Drs. Abdirahman Gill, Damian De Santiago and colleagues, with an educational pascual from [email or web address]. POOL-7 Assessment Billing POOL-7 Assessment Tool: POOL-7 Assessment 03752 Review of Systems Const Denies fever(s), Denies headache(s) and Denies weakness Eyes Denies change in vision ENT Denies dizziness, Denies headache(s) and Denies nasal congestion Card Denies chest pain, Denies lightheadedness, Denies palpitations and Denies dyspnea Resp Denies chest congestion, Denies cough and Denies dyspnea GI Denies abdominal pain, Denies change in bowel habits and Denies heartburn Reports no additional complaints Musc Reports no additional complaints Neuro Denies dizziness, Denies headache(s) and Denies weakness Psych Reports as per HPI Endo Denies polydipsia, Denies polyuria and Denies palpitations Physical exam (Primary Care) Vital Signs: Last Vital Signs Pulse 81 09/26/23 08:39 BP 92/60 09/26/23 08:39 Pulse Ox 98 09/26/23 08:39 Oxygen Delivery Method Room Air 09/26/23 08:39 BMI result Body Mass Index 36.3 Tobacco/Smoking Status: Tobacco use Status Tobacco use date assessed 09/26/23 09/26/23 08:44 Patient Tobacco Use Status Never used Tobacco 09/26/23 08:44 e-Cigarette/Vaping Use Never Used 09/26/23 08:44 Depression Screening Interpretation: Negative Thrive Assessment: Date of Thrive Assessment Date Thrive assessed 10/10/22 09/26/23 08:44 Const General: no acute distress and alert Orientation/consciousness: patient oriented x3 HENMT Ears: external ears normal General nose exam: Normal external nose present Mouth: moist mucous membranes Eyes General: appearance normal, both eyes and all related structures Neck Neck: Yes full ROM, Yes no lymphadenopathy and Yes supple Resp Effort & Inspection: normal respiratory effort and able to speak in complete sentences Auscultation: clear to auscultation bilaterally Cardio Rate: regular rate Rhythm: regular rhythm Heart sounds: S1 normal heart sound present and S2 normal heart sound present GI Palpation (GI): Soft to palpation, nontender and no masses Auscultation: normal bowel sounds Back/Spine/Pelvis Back: No back tenderness Neuro General: patient oriented x3, gait normal, tone normal, moves all extremities and no focal motor deficits Extrem General: Yes full ROM, Yes no joint enlargement, Yes no clubbing, cyanosis or edema and Yes no calf tenderness Psych Appearance: grossly normal and well kempt Mental Status: mental status grossly normal Speech and movement: Normal speech and movement present Affect: normal affect Attitude: cooperative Thought process: Normal thought process present Thought content: Normal thought content present Assessment and Plan Assessment & Plan (1) Anxiety: Code(s): F41.9 - Anxiety disorder, unspecified Plan: Stable controlled on citalopram 20 mg taken once a day. Advised to start taking it at night as it has been making her feel more tired than usual. Will see her for follow-up later in the summer (2) Hx of lumbar discectomy: Code(s): Z98.890 - Other specified postprocedural states Plan: Done May 2023, with good results. Letter was sent to her employer recommending that she be provided with an ergonomic chair with added lumbar support (3) Vitamin D deficiency: Code(s): E55.9 - Vitamin D deficiency, unspecified Plan: Will check another vitamin-D level, continue taking vitamin-D 3 at 50 mcg once daily (4) Obesity (BMI 30.0-34.9): Code(s): E66.9 - Obesity, unspecified Plan: Discussed need to increase activity and weight loss. Eat Mediterranean diet, limit foods high in fat, sugar, and calories, eat slowly, pay attention to portion sizes, plan your meals ahead of time, start regular physical activity 150 minutes of moderate intensity exercise or 90 minutes/week of vigorous exercise (5) History of degenerative disc disease: Code(s): Z87.39 - Personal history of other diseases of the musculoskeletal system and connective tissue Plan: Had lumbar microdiskectomy done last May 2023, with good results. Letter was sent to her employer recommending that she be provided with an ergonomic chair with added lumbar support Orders: Orders Complete Blood Count Auto Diff 10/05/23 E55.9 - Vitamin D deficiency, unspecified, E66.9 - Obesity, unspecified, F41.9 - Anxiety disorder, unspecified, Z00.00 - Encounter for general adult medical examination without abnormal findings, Z83.3 - Family history of diabetes mellitus Alanine Aminotransferase 10/05/23 E55.9 - Vitamin D deficiency, unspecified, E66.9 - Obesity, unspecified, F41.9 - Anxiety disorder, unspecified, Z00.00 - Encounter for general adult medical examination without abnormal findings, Z83.3 - Family history of diabetes mellitus Vitamin D 25-OH Total 10/05/23 E55.9 - Vitamin D deficiency, unspecified, E66.9 - Obesity, unspecified, F41.9 - Anxiety disorder, unspecified, Z00.00 - Encounter for general adult medical examination without abnormal findings, Z83.3 - Family history of diabetes mellitus Aspartate Amino Transferase 10/05/23 E55.9 - Vitamin D deficiency, unspecified, E66.9 - Obesity, unspecified, F41.9 - Anxiety disorder, unspecified, Z00.00 - Encounter for general adult medical examination without abnormal findings, Z83.3 - Family history of diabetes mellitus Basic Metabolic Panel Fasting 10/05/23 E55.9 - Vitamin D deficiency, unspecified, E66.9 - Obesity, unspecified, F41.9 - Anxiety disorder, unspecified, Z00.00 - Encounter for general adult medical examination without abnormal findings, Z83.3 - Family history of diabetes mellitus Lipid Panel 10/05/23 E55.9 - Vitamin D deficiency, unspecified, E66.9 - Obesity, unspecified, F41.9 - Anxiety disorder, unspecified, Z00.00 - Encounter for general adult medical examination without abnormal findings, Z83.3 - Family history of diabetes mellitus Medications: New escitalopram oxalate (Lexapro) 20 mg PO DAILY 90 tabs 1RF Coding Level of Care Code Est Pt Level 4 (34314) Diagnoses Anxiety F41.9 Hx of lumbar discectomy Z98.890 Vitamin D deficiency E55.9 Obesity (BMI 30.0-34.9) E66.9 History of degenerative disc disease Z87.39 Additional Codes POOL-7 Assessment Billing - POOL-7 Assessment Tool: POOL-7 Assessment 89986 ([id number])
== END 2023-09-26 09:09 | disposition home or self-care (01) ==
PROVIDERS: PCP Internal Medicine; Visit Provider Internal Medicine
DX: E55.9 Vitamin D deficiency, unspecified (principal); Z98.890 Other specified postprocedural states; E66.9 Obesity, unspecified; Z68.36 Body mass index [BMI] 36.0-36.9, adult; F41.9 Anxiety disorder, unspecified; Z87.39 Personal history of other diseases of the musculoskeletal system and connective tissue
CPT/HCPCS: 99214

== ENCOUNTER 2023-10-16 10:58 | Outpatient (AMB) | payer OTHER, SELFPAY ==
--- NOTE | 2023-10-16 11:02 | MHC.PC.OV ---
Vital Signs 10/16/23 11:05 Height 5 ft 1 in Weight 192 lb BMI 36.3 BP 110/66 Blood Pressure Location Rt brachial Position Sitting Pulse 91 Pulse Source Pulse Oximeter Pulse Oximetry (%) 97 Oxygen Delivery Method Room Air Intake Visit Reasons: Annual PE <40 yrs of age Intake Note: Pt is here today for her PE: Last papsmear 05/02/22 Is last menstrual period known: Yes Last menstrual period: 10/10/23 Allergies amoxicillin Allergy (Severe, Verified 10/16/23 11:12) Hives, rash. ? throat closing cefprozil Allergy (Severe, Verified 10/16/23 11:12) hives,rash cephalexin Allergy (Severe, Verified 10/16/23 11:12) Hives,rash Tobacco use date assessed: 10/16/23 Dental Screening Dental Screen Date: 10/16/23 Did you have a dental visit in the last 12 months?: Yes Did you have a dental problem in the last 6 months where you did not have access to dental care?: No Was dental information given to patient?: Patient has dentist HPI Annual PE <40 yrs of age HPI Details 28-year-old lady here today for her physical exam. She had her last Pap smear done 05/02/22 by her OBGYN at [facility], came back negative. She is currently being seen by Dr. Solis for scalp psoriasis. Found to have vitamin-D deficiency on last physical exam , now taking cholecalciferol 50 mcg daily She has been seen by [facility], and had an endoscopy done several years ago which she states showed presence of a hiatal hernia with reflux. Has been having intermittent episodes of heartburn symptoms usually at night, and complains of irregular bowel movements, with abdominal bloating and cramps. Has been diagnosed to have IBS in the past when she was a child and previously was on dicyclomine which was helping. [facility] Medical History Gastric reflux Scoliosis Vitamin D deficiency Lumbago Family history of diabetes mellitus in father Fatigue Obesity (BMI 30.0-34.9) Psoriasis of scalp Anxiety Annual physical exam Insomnia Surgical History Hx of lumbar discectomy Hx of lymph node excision Hx of esophagogastroduodenoscopy Hx of colonoscopy History of appendectomy Family History Father HTN (hypertension) Diabetes mellitus Mental health disorder Brother No problems noted. Sister No problems noted. Sister No problems noted. Sister No problems noted. Sister No problems noted. Social History Household Members: Significant Other Housing: Apartment Are you a primary home health care provider to a significant other at home: No Do you presently have visiting nurse or other home services: No Alcohol intake: never Comment: counts correct Patient Tobacco Use Status: Never used Tobacco e-Cigarette/Vaping Use: Never Used Substance Use Type: Marijuana service: No Current occupational status: employed Cognitive needs: No Hearing needs: No Vision needs: Yes Female Reproductive History Menstrual Date of last menstrual period: 10/10/23 Questionnaire PHQ-9 Over the last 2 weeks, how often have you been bothered by any of the following problems? 1. Little interest or pleasure in doing things: not at all 2. Feeling down, depressed, or hopeless: not at all 3. Trouble falling or staying asleep, or sleeping too much: not at all 4. Feeling tired or having little energy: not at all 5. Poor appetite or overeating: not at all 6. Feeling bad about yourself - or that you are a failure or have let yourself or your family down: not at all 7. Trouble concentrating on things, such as reading the newspaper or watching television: not at all 8. Moving or speaking so slowly that other people could have noticed. Or the opposite - being so fidgety or restless that you have been moving around a lot more than usual: not at all 9. Thoughts that you would be better off or of hurting yourself in some way: not at all Total score: 0 Depression Screening Interpretation: Negative Depression Screening Done: Yes 44848 - PHQ-9 Billing: Yes Source: Developed by Drs. Abdirahman Gill, Denise Bermudez, Damian Delaney and colleagues, with an educational pascual from [employer]. Thrive Questionnaire Date Thrive assessed: 10/16/23 I am a: Patient What is your living situation today?: I have a steady place to live Within the past 12 months, did the food you bought not last and you didn't have the money to get more?: Never true Within the past 12 months, did you worry whether your food would run out before you got money to buy more?: Never true Do you have trouble paying for medicines?: No Do you have trouble getting transportation to medical appointments?: No Do you have trouble paying your heating and electricity bill?: No Do you have trouble taking care of your child, family member or friend?: No Do you have trouble with day-to-day activities such as bathing, preparing meals, shopping, managing finances, etc.?: No Are you currently unemployed and looking for a job?: No Are you interested in more education?: No THRIVE Score: 0 POOL-7 AMB Questionnaire POOL-7 Date POOL - 7 assessed: 10/16/23 Feeling nervous, anxious, or on edge: 0 = Not at all Not being able to stop or control worryin = Not at all Worrying too much about different things: 0 = Not at all Trouble relaxin = Not at all Being so restless that it is hard to sit still: 0 = Not at all Becoming easily annoyed or irritable: 0 = Not at all Feeling afraid as if something awful might happen: 0 = Not at all Total POOL-7 score (0-4 normal; 5-9 mild; 10-14 moderate; 15-21 severe): 0 Source: Developed by Drs. Abdirahman Gill, Denise Bermudez, Damian Delaney and colleagues, with an educational pascual from [employer]. POOL-7 Assessment Billing POOL-7 Assessment Tool: POOL-7 Assessment 00021 Review of Systems Const Denies fever(s), Denies headache(s) and Denies weakness Eyes Details: Currently being seen at [facility] , was told that she has unspecified opacities in both eye field, currently being watched, no change in vision Denies change in vision ENT Denies dizziness, Denies headache(s) and Denies nasal congestion Card Denies chest pain, Denies lightheadedness, Denies palpitations and Denies dyspnea Resp Denies chest congestion, Denies cough and Denies dyspnea GI Reports as per HPI Details: CURRENTLY GOES TO [facility] FOR ROUTINE PAP AND PELVIC EXAM, HAS AN APPOINTMENT ALREADY SCHEDULED FOR APRIL THIS YEAR Reports no additional complaints and Reports as per HPI Musc Reports no additional complaints Skin/Breast Denies breast swelling, Denies breast pain, Denies breast mass, Denies lesions and Denies rash Neuro Denies dizziness, Denies headache(s) and Denies weakness Psych Reports as per HPI Endo Denies polydipsia, Denies polyuria and Denies palpitations Chavez/Lymph Reports no additional complaints Aller/Immun Reports no additional complaints Physical exam (Primary Care) Vital Signs: Last Vital Signs Pulse 91 10/16/23 11:05 BP 110/66 10/16/23 11:05 Pulse Ox 97 10/16/23 11:05 Oxygen Delivery Method Room Air 10/16/23 11:05 BMI result Body Mass Index 36.3 Tobacco/Smoking Status: Tobacco use Status Tobacco use date assessed 10/16/23 10/16/23 11:04 Patient Tobacco Use Status Never used Tobacco 10/16/23 11:04 e-Cigarette/Vaping Use Never Used 10/16/23 11:04 Depression Screening Interpretation: Negative Thrive Assessment: Date of Thrive Assessment Date Thrive assessed 09/26/23 10/16/23 11:04 Const General: no acute distress and alert Orientation/consciousness: patient oriented x3 HENMT Ears: external ears normal General nose exam: Normal external nose present Mouth: moist mucous membranes Eyes General: appearance normal, both eyes and all related structures Neck Neck: Yes full ROM, Yes no lymphadenopathy and Yes supple Chest Chest palpation & inspection: normal inspection of the chest and normal palpation of entire chest wall Breast/axilla palpation: normal palpation of the breasts and normal palpation of the axillae Resp Effort & Inspection: normal respiratory effort and able to speak in complete sentences Auscultation: clear to auscultation bilaterally Cardio Rate: regular rate Rhythm: regular rhythm Heart sounds: S1 normal heart sound present and S2 normal heart sound present GI Palpation (GI): Soft to palpation, nontender and no masses Auscultation: normal bowel sounds Back/Spine/Pelvis Back: No back tenderness Skin General skin exam: no rashes or lesions noted Neuro General: patient oriented x3, gait normal, tone normal, moves all extremities and no focal motor deficits Extrem General: Yes full ROM, Yes no joint enlargement, Yes no clubbing, cyanosis or edema and Yes no calf tenderness Psych Appearance: grossly normal and well kempt Mental Status: mental status grossly normal Speech and movement: Normal speech and movement present Affect: normal affect Attitude: cooperative Thought process: Normal thought process present Thought content: Normal thought content present Assessment and Plan Assessment & Plan (1) Annual physical exam: Code(s): Z00.00 - Encounter for general adult medical examination without abnormal findings Plan: Reminded patient to get her fasting labs done, already ordered. Continue regular dental visit every 6 months and regular eye exams, at least every 2 years. T continue with taking vitamin-D 3 supplements, regular exercise recommended. Up-to-date with her cervical cancer screening, goes to [facility], last done 2021 with negative findings.. Has had COVID vaccines but does not get the booster anymore, reminded to get yearly flu vaccine, up-to-date with her childhood vaccines, up-to-date with her Tdap. (2) Vitamin D deficiency: Code(s): E55.9 - Vitamin D deficiency, unspecified Plan: Check vitamin-D level, continue with cholecalciferol 50 mcg daily (3) Obesity (BMI 30.0-34.9): Code(s): E66.9 - Obesity, unspecified Plan: Discussed need to increase activity and wt reduction. Recommended focusing on improving your health instead of dieting. : Eat Mediterranean diet, limit foods high in fat, sugar, and calories, eat slowly, pay attention to portion sizes, plan your meals ahead of time, start regular physical activity 150 minutes of moderate intensity exercise or 90 minutes/week of vigorous exercise (4) Psoriasis of scalp: Comment: seen by Dr Bill Code(s): L40.9 - Psoriasis, unspecified Plan: Currently followed by Dr. Sharpe uses fluocinonide 0.05% cream as needed (5) Anxiety: Code(s): F41.9 - Anxiety disorder, unspecified Plan: Doing well on escitalopram 20 mg once a day (6) Immunity status testing: Code(s): Z01.84 - Encounter for antibody response examination Plan: Ordered hepatitis-B surface antibody titer (7) Hiatal hernia: Code(s): K44.9 - Diaphragmatic hernia without obstruction or gangrene Plan: Advised to eat slowly, stay upright after eating, avoid wearing tight clothing, (8) Heartburn: Code(s): R12 - Heartburn Plan: Prescription sent for omeprazole 20 mg per capsule to take once a day an hour before eating, avoidance of triggers for heartburn such as tomato based sauces, grilled fried foods, highly spiced foods. (9) Irritable bowel syndrome with mixed bowel habits: Code(s): K58.2 - Mixed irritable bowel syndrome Plan: Prescription sent for dicyclomine 20 mg per tablet to take 1 tablet 3 times a day before meals and at bedtime. One hundred twenty tablets prescribed with no refill, Orders: Orders Hepatitis B Surface Antibody Today Z01.84 - Encounter for antibody response examination Medications: New omeprazole 20 mg PO DAILY 30 caps 1RF K44.9 - Diaphragmatic hernia without obstruction or gangrene, R12 - Heartburn dicyclomine 20 mg PO QID 30 days 120 tabs 0RF K58.2 - Mixed irritable bowel syndrome Refilled docusate sodium (Colace) 100 mg PO BID 90 caps 0RF Coding Level of Care Code Est Pt Prev Care 18-39y(25560) Diagnoses Annual physical exam Z00.00 Vitamin D deficiency E55.9 Obesity (BMI 30.0-34.9) E66.9 Psoriasis of scalp L40.9 Anxiety F41.9 Immunity status testing Z01.84 Hiatal hernia K44.9 Heartburn R12 Irritable bowel syndrome with mixed bowel habits K58.2 Additional Codes POOL-7 Assessment Billing - POOL-7 Assessment Tool: POOL-7 Assessment 28729 ([id number])
[2023-10-16 11:05] VITALS: BP 110/66; PULSE 91; O2SAT 97; BMI 36.3
== END 2023-10-16 11:40 | disposition home or self-care (01) ==
PROVIDERS: Visit Provider Internal Medicine
DX: Z00.00 Encounter for general adult medical examination without abnormal findings (principal); Z68.36 Body mass index [BMI] 36.0-36.9, adult; E55.9 Vitamin D deficiency, unspecified; E66.9 Obesity, unspecified; L40.9 Psoriasis, unspecified; F41.9 Anxiety disorder, unspecified; Z01.84 Encounter for antibody response examination; K44.9 Diaphragmatic hernia without obstruction or gangrene; R12 Heartburn; K58.2 Mixed irritable bowel syndrome
CPT/HCPCS: 99395

== ENCOUNTER 2023-10-16 11:42 | Outpatient (REF) | payer OTHER, SELFPAY ==
[2023-10-16 13:13] LABS: MANUAL DIFF FLAG NO
[2023-10-16 13:30] LABS: Basophils Absolute Auto 0.1 X10*3/uL (0.0-0.2); Basophils Percent Auto 1.2 % (0-2); Eosinophils Absolute Auto 0.5 X10*3/uL (0.0-0.4); Eosinophils Percent Auto 6.1 % (0-4); Hematocrit 41.8 % (37.0-47.0); Hemoglobin 14.1 g/dl (12.0-16.0); Imm Gran Abs Auto 0.03 X10*3/uL (0.00-0.03); Imm Gran Pct Auto 0.4 % (0.0-0.4); Lymphocytes Percent Auto 23.8 % (20-40); Mean Corpuscular HGB Conc 33.7 g/dl (31.0-35.0); Mean Corpuscular Hemoglobin 30.8 pg (27.0-33.0); Mean Corpuscular Volume 91.3 fL (80.0-98.0); Mean Platelet Volume 10.6 fL (9.4-12.3); Monocytes Absolute Auto 0.5 X10*3/uL (0.1-1.2); Monocytes Percent Auto 5.9 % (2-11); Neutrophils Absolute Auto 5.3 x10*3/uL (2.0-8.3); Neutrophils Percent Auto 62.6 % (45-73); Platelet Count 397 X10*3/uL (160-400); Red Blood Count 4.58 X10*6/uL (4.20-5.50); Red Cell Distribution Width 12.2 % (11.0-16.0); White Blood Count 8.5 X10*3/uL (4.8-10.8)
[2023-10-16 13:58] LABS: Alanine Aminotransferase 35 U/L (0-31); Anion Gap 9 (12-20); Aspartate Amino Transferase 23 U/L (5-31); Blood Urea Nitrogen 9 mg/dL (9-16); Calcium 9.7 mg/dL (8.4-10.2); Carbon Dioxide 30 mmol/L (22-29); Chloride 105 mmol/L (96-108); Cholesterol 205 mg/dL (<200); Estimated Glomerular Filt Rate > 60; Glucose Fasting 97 mg/dL (60-99); HDL Cholesterol 43 mg/dL (>40); LDL Cholesterol Calculated 124 mg/dL (<100); Potassium 4.7 mmol/L (3.3-5.1); Sodium 139 mmol/L (135-145); Triglycerides 191 mg/dL (<150)
[2023-10-16 14:05] LABS: Vitamin D 25-OH Total 48.8 ng/mL (>30)
[2023-10-17 07:32] LABS: HBS Num1 > 1000.00 mIU/mL (0-7.99); ~Hepatitis B Surface Antibody REACTIVE (Nonreactive)
== END 2023-10-16 11:43 | disposition home or self-care (01) ==
LOC: HO.HMGCLDS 11:42
PROVIDERS: PCP Internal Medicine; Visit Provider Internal Medicine
DX: Z00.00 Encounter for general adult medical examination without abnormal findings (principal); E55.9 Vitamin D deficiency, unspecified; E66.9 Obesity, unspecified; F41.9 Anxiety disorder, unspecified; Z83.3 Family history of diabetes mellitus
CPT/HCPCS: 36415; 80048; 80061; 82306; 84450; 84460; 85025; 86706

== ENCOUNTER 2024-06-04 08:55 | Outpatient (AMB) | payer OTHER, SELFPAY ==
--- NOTE | 2024-06-04 09:19 | MHC.OFFWIV ---
Intake Vital Signs 06/04/24 09:20 Height 5 ft 1 in Weight 188 lb BMI 35.5 BP 100/78 Blood Pressure Location Rt brachial Position Sitting Pulse 85 Pulse Source Pulse Oximeter Temp 98.1 F Temp Source Oral Pulse Oximetry (%) 95 Oxygen Delivery Method Room Air Intake Visit Reasons: EP cold, coughing, chest pain, congestion Intake Note: Patient here for cough, congestion, chest pressure, fatigue and slight sob which has been present for about 3 weeks. Patient Tobacco Use Status: Never used Tobacco Allergies amoxicillin Allergy (Severe, Verified 06/04/24 09:21) Hives, rash. ? throat closing cefprozil Allergy (Severe, Verified 06/04/24 09:21) hives,rash cephalexin Allergy (Severe, Verified 06/04/24 09:21) Hives,rash Do you need a note to return to daycare/school/sports/work: Yes HPI HPI Comments History of Present Illness Details This is a 29-year-old female who presented to the walk-in clinic complaining of a productive cough, chest congestion, and chest pain x1 week in the setting of viral URI symptoms x3 weeks. Patient states she developed viral URI symptoms including nasal/sinus congestion, rhinorrhea, sore throat, otalgia, and fatigue about 3 weeks ago. She then started to develop some chest congestion with a productive cough about 1 week ago. She denies any associated fever/chills. She does report some mild shortness of breath with exertion but denies any wheezing. She also reports some chest pain located in the middle of her chest. She states that it comes on with coughing but occasionally lingers after coughing. She denies any radiation of the chest pain into her arm, jaw, neck, or back. [facility] Medical History (Updated 10/16/23 @ 11:35 by Joceline Mcmahon MD) Irritable bowel syndrome with mixed bowel habits Heartburn Hiatal hernia Gastric reflux Scoliosis Vitamin D deficiency Lumbago Family history of diabetes mellitus in father Fatigue Obesity (BMI 30.0-34.9) Psoriasis of scalp Anxiety Annual physical exam Insomnia Surgical History Hx of lumbar discectomy Hx of lymph node excision Hx of esophagogastroduodenoscopy Hx of colonoscopy History of appendectomy Family History Father HTN (hypertension) Diabetes mellitus Mental health disorder Brother No problems noted. Sister No problems noted. Sister No problems noted. Sister No problems noted. Sister No problems noted. Social History Household Members: Significant Other Housing: Apartment Are you a primary director of healthcare systems to a significant other at home: No Do you presently have visiting nurse or other home services: No Alcohol intake: never Comment: counts correct Patient Tobacco Use Status: Never used Tobacco e-Cigarette/Vaping Use: Never Used Substance Use Type: Marijuana service: No Current occupational status: employed Cognitive needs: No Hearing needs: No Vision needs: Yes Review of Systems Const All systems reviewed & are unremarkable except as noted in HPI and below Reports no additional complaints Eyes Reports no additional complaints ENT Reports no additional complaints Card Reports no additional complaints Resp Reports no additional complaints GI Reports no additional complaints Reports no additional complaints Musc Reports no additional complaints Skin/Breast Reports system reviewed and no additional complaints, except as documented Neuro Reports no additional complaints Psych Reports no additional complaints Endo Reports no additional complaints Chavez/Lymph Reports no additional complaints Aller/Immun Reports no additional complaints Physical Exam Vital Signs: BMI result Body Mass Index 35.5 Const Other: Vital signs reviewed. Constitutional: Non-toxic appearing. No acute distress. Well-developed and well-nourished. HEENT: Normocephalic and atraumatic. Tympanic membranes without erythema, edema, or bulging bilaterally. External auditory canals without erythema or edema bilaterally. Moist mucous membranes. No pharyngeal erythema or exudates. Skin: Warm and dry. No rashes or lesions noted. Neck: Full and painless range of motion. No cervical lymphadenopathy. Cardio: Regular rate and rhythm. No murmurs, gallops, or rubs. No lower extremity edema. No JVD. Pulmonary: No respiratory distress. No accessory muscle usage. Clear to auscultation bilaterally without wheezing, crackles, or rhonchi. Gastrointestinal: Soft, nontender, and nondistended in all 4 quadrants. Musculoskeletal: Normal range of motion in joints throughout the body. No deformity or other signs of injury. Neuro: Alert and oriented x4. Cranial nerves 2-12 grossly intact. No focal deficits appreciated. Psych: Normal mood and affect. Assessment & Plan Assessment & Plan (1) Acute bronchitis: Code(s): J20.9 - Acute bronchitis, unspecified Qualifiers: Bronchitis organism: unspecified organism Qualified Code(s): J20.9 - Acute bronchitis, unspecified Plan: This is a 29-year-old female who presented to the walk-in clinic complaining of chest congestion and a productive cough x1 week in the setting of viral URI symptoms x3 weeks. On physical examination, her lungs are clear to auscultation bilaterally. Her vital signs are stable and patient is overall nontoxic appearing. Patient very likely has acute bronchitis versus atypical/walking pneumonia. Patient was given a prescription for p.o. prednisone 40 mg daily x5 days and p.o. azithromycin 500 mg today followed by 250 mg daily x4 days. I also recommended symptomatic management including rest, increased fluids, advil/tylenol for pain/fever, and over the counter throat lozenges/decongestants. Patient advised to follow up here or go to the emergency room for worsening/persistent symptoms. Of note, I offered the patient an EKG given her complaints of chest pain but patient declined at this time and I have very low suspicion for cardiac etiology of her chest pain. I also offered COVID/flu/RSV testing the patient declined that, as well. Medications: New prednisone 40 mg (2 x 20 mg) PO DAILY 10 tabs 0RF azithromycin For 250 mg dose pack: take 500 mg today (day 1), then 250 mg for 4 days (days 2-5) PO 6 tabs 0RF Coding Level of Care Code Est Pt Level 3 (94672) Diagnoses Acute bronchitis, unspecified organism J20.9 Bronchitis organism: unspecified organism
[2024-06-04 09:20] VITALS: BP 100/78; PULSE 85; TEMP 36.7; O2SAT 95; BMI 35.5
== END 2024-06-04 09:48 | disposition home or self-care (01) ==
PROVIDERS: PCP Internal Medicine; Visit Provider Physician Assistant Medical
DX: J20.9 Acute bronchitis, unspecified (principal)

== ENCOUNTER → 2024-06-04 08:55 | Outpatient (BNVA) | payer OTHER, SELFPAY | PROVIDERS: PCP Internal Medicine; Visit Provider Registered Nurse ==

== ENCOUNTER 2024-07-22 08:26 | Outpatient (AMB) | payer OTHER, SELFPAY ==
--- NOTE | 2024-07-22 09:42 | AM.OFFWIN_ITS ---
Intake Vital Signs 07/22/24 09:43 Height 5 ft 1 in Weight 192 lb BMI 36.3 BP 100/68 Blood Pressure Location Rt brachial Position Sitting Pulse 92 Pulse Source Pulse Oximeter Temp 98.3 F Temp Source Oral Pulse Oximetry (%) 98 Oxygen Delivery Method Room Air Intake Visit Reasons: EP ?? bronchitis/pneumonia still Intake Note: Patient here for fever, difficulty breathing. she states she was treated for pneumonia and felt better for a while but then symptoms started up again. Patient Tobacco Use Status: Never used Tobacco Allergies amoxicillin Allergy (Severe, Verified 07/22/24 09:45) Hives, rash. ? throat closing cefprozil Allergy (Severe, Verified 07/22/24 09:45) hives,rash cephalexin Allergy (Severe, Verified 07/22/24 09:45) Hives,rash Do you need a note to return to daycare/school/sports/work: Yes HPI HPI Comments History of Present Illness Details 29 y/o female patient who presents to [facility] walk in clinic with c/o URI symptoms. She was seen and evaluated back in May of 2024 for similar symptoms. She was prescribed Z-pack then. Today reports nasal congestion, sinus pressure, fevers and chills since Friday. [facility] Medical History (Updated 10/16/23 @ 11:35 by Joceline Mcmahon MD) Irritable bowel syndrome with mixed bowel habits Heartburn Hiatal hernia Gastric reflux Scoliosis Vitamin D deficiency Lumbago Family history of diabetes mellitus in father Fatigue Obesity (BMI 30.0-34.9) Psoriasis of scalp Anxiety Annual physical exam Insomnia Surgical History Hx of lumbar discectomy Hx of lymph node excision Hx of esophagogastroduodenoscopy Hx of colonoscopy History of appendectomy Family History Father HTN (hypertension) Diabetes mellitus Mental health disorder Brother No problems noted. Sister No problems noted. Sister No problems noted. Sister No problems noted. Sister No problems noted. Social History Household Members: Significant Other Housing: Apartment Are you a primary career transition specialist to a significant other at home: No Do you presently have visiting nurse or other home services: No Alcohol intake: never Comment: counts correct Patient Tobacco Use Status: Never used Tobacco e-Cigarette/Vaping Use: Never Used Substance Use Type: Marijuana service: No Current occupational status: employed Cognitive needs: No Hearing needs: No Vision needs: Yes Review of Systems Const All systems reviewed & are unremarkable except as noted in HPI and below Physical Exam Vital Signs: Last Vital Signs Temp 98.3 F 07/22/24 09:43 Pulse 92 07/22/24 09:43 BP 100/68 07/22/24 09:43 Pulse Ox 98 07/22/24 09:43 Oxygen Delivery Method Room Air 07/22/24 09:43 BMI result Body Mass Index 36.3 Const General: cooperative and no acute distress Nutritional Appearance: overweight Orientation/consciousness: patient oriented x3 HEENT Head: Yes normocephalic Ears: external ears normal and TM abnormal bulging and with fluid behind the TM bilateral; not retracted General nose exam: Normal nasal mucous membranes and turbinates present Face and sinus: Yes sinuses nontender Mouth: moist mucous membranes Resp Effort & Inspection: normal respiratory effort and able to speak in complete sentences Auscultation: clear to auscultation bilaterally Cardio Heart sounds: S1 normal heart sound present and S2 normal heart sound present Neuro General: patient oriented x3 Assessment & Plan Assessment & Plan (1) Acute respiratory disease: Code(s): J06.9 - Acute upper respiratory infection, unspecified Plan: Ordered SARs Rest and hydrate well with plenty of fluids. Acetaminophen for pain and fever relief OTC cold remedies. Orders: Orders SARS-CoV2/FLU/RSV Today R09.89 - Other specified symptoms and signs involving the circulatory and respiratory systems Coding Level of Care Code Est Pt Level 3 (41992) Diagnoses Acute respiratory disease J06.9 Time Spent (min) 15
[2024-07-22 09:43] VITALS: BP 100/68; PULSE 92; TEMP 36.8; O2SAT 98; BMI 36.3
== END 2024-07-22 10:36 | disposition home or self-care (01) ==
PROVIDERS: PCP Internal Medicine; Visit Provider Nurse Practitioner Family
DX: J06.9 Acute upper respiratory infection, unspecified (principal)

== ENCOUNTER 2024-07-22 08:26 | Outpatient (REF) | payer OTHER, SELFPAY ==
[2024-07-22 14:55] LABS: Influenza A PCR POSITIVE (Negative); Influenza B PCR NEGATIVE (Negative); Resp Syncy Virus RNA Qual PCR NEGATIVE (Negative); SARS COV2 PCR INHOUSE NEGATIVE (Negative)
== END 2024-07-22 08:27 | disposition home or self-care (01) ==
LOC: HO.LAB 08:26
PROVIDERS: PCP Internal Medicine; Visit Provider Nurse Practitioner Family
DX: J06.9 Acute upper respiratory infection, unspecified (principal); R09.89 Other specified symptoms and signs involving the circulatory and respiratory systems
CPT/HCPCS: 0241U

== ENCOUNTER 2025-03-07 09:38 | Outpatient (REF) | payer OTHER, SELFPAY ==
[2025-03-07 14:10] LABS: MANUAL DIFF FLAG NO
[2025-03-07 14:16] LABS: Hematocrit 40.2 % (37.0-47.0); Hemoglobin 13.7 g/dl (12.0-16.0); Imm Gran Abs Auto 0.02 X10*3/uL (0.00-0.03); Imm Gran Pct Auto 0.2 % (0.0-0.4); Lymphocytes Absolute Auto 2.1 X10*3/uL (1.2-4.9); Mean Corpuscular HGB Conc 34.1 g/dl (31.0-35.0); Mean Corpuscular Hemoglobin 30.3 pg (27.0-33.0); Mean Corpuscular Volume 88.9 fL (80.0-98.0); NRBC Abs Auto 0.000 X10*3/uL (0.0-0.012); NRBC Pct Auto 0.0 /100WBC (0.0-0.2); Platelet Count 346 X10*3/uL (160-400); Red Blood Count 4.52 X10*6/uL (4.20-5.50); White Blood Count 8.8 X10*3/uL (4.8-10.8)
[2025-03-07 15:11] LABS: Alanine Aminotransferase 15 U/L (0-31); Anion Gap 12 (12-20); Aspartate Amino Transferase 23 U/L (5-31); Blood Urea Nitrogen 7 mg/dL (9-16); Calcium 9.2 mg/dL (8.4-10.2); Carbon Dioxide 26 mmol/L (22-29); Chloride 105 mmol/L (96-108); Cholesterol 166 mg/dL (<200); Estimated Glomerular Filt Rate > 60; HDL Cholesterol 40 mg/dL (>40); Potassium 4.0 mmol/L (3.3-5.1); Sodium 139 mmol/L (135-145); Triglycerides 160 mg/dL (<150)
[2025-03-07 15:31] LABS: Folate 7.7 ng/mL (> or = 4.0); Vitamin B12 370 pg/mL (200-900)
== END 2025-03-07 09:39 | disposition home or self-care (01) ==
LOC: HO.HMGCLDS 09:38
PROVIDERS: PCP Internal Medicine; Visit Provider Internal Medicine
DX: Z00.01 Encounter for general adult medical examination with abnormal findings (principal); G47.9 Sleep disorder, unspecified; G47.19 Other hypersomnia; E66.9 Obesity, unspecified; E55.9 Vitamin D deficiency, unspecified; R05.8 Other specified cough; K58.1 Irritable bowel syndrome with constipation; R12 Heartburn; R53.83 Other fatigue; K62.5 Hemorrhage of anus and rectum
CPT/HCPCS: 36415; 80048; 80061; 82306; 82607; 82746; 84443; 84450; 84460; 85025; 96127

== ENCOUNTER 2025-03-07 09:38 | Outpatient (AMB) | payer OTHER, SELFPAY ==
--- NOTE | 2025-03-07 09:56 | MHC.PC.OV ---
Vital Signs 03/07/25 09:57 Height 5 ft 1 in Weight 186 lb BMI 35.1 BP 106/60 Blood Pressure Location Lt brachial Position Sitting Respiration 16 Pulse 73 Pulse Source Pulse Oximeter Temp 98.7 F Temp Source Oral Pulse Oximetry (%) 100 Oxygen Delivery Method Room Air Intake Visit Reasons: Annual PE Intake Note: Pt is here today for her PE: last papsmear 05/02/22 Is last menstrual period known: Yes Last menstrual period: 02/19/25 Allergies amoxicillin Allergy (Severe, Verified 03/13/25 02:29) Hives, rash. ? throat closing cefprozil Allergy (Severe, Verified 03/13/25 02:29) hives,rash cephalexin Allergy (Severe, Verified 03/13/25 02:29) Hives,rash Medication List - Last Reconciled 03/07/25 by Joceline Mcmahon MD No Known Home Meds Tobacco use date assessed: 03/07/25 Dental Screening Dental Screen Date: 03/07/25 Did you have a dental visit in the last 12 months?: Yes Did you have a dental problem in the last 6 months where you did not have access to dental care?: No Was dental information given to patient?: Patient has dentist HPI Annual PE HPI Details 29-year-old lady with obesity, here today for her physical exam. Currently not on any medications at present time. She goes to her own OBGYN at [facility], with last Pap smear done April 2022 with negative findings. - Sleep disturbance: Reports difficulty maintaining sleep, frequent awakenings, and excessive daytime sleepiness. - Fatigue: Persistent fatigue not relieved by rest, accompanied by headaches. - Weight loss: Lost weight from 192 to 186 pounds only , through gym and boot camp. - Heartburn: Experiences heartburn, sometimes triggered by coffee or acidic foods, and reports waking up coughing, possibly due to reflux. - Constipation: Reports irregular bowel movements,, bloating, constipation sometimes requiring manual assistance, with a history of exploratory abdominal surgery for tortuous intestines - reports seeing occasional bright red blood in stool. No pain with defecation - Congenital cataracts: Has congenital cataracts and wears glasses for distance, primarily for night driving. - History of scoliosis and microdiscectomy: Underwent microdiscectomy, alleviating leg numbness,and back pain . [facility] Medical History (Updated 03/07/25 @ 10:49 by Joceline Mcmahon MD) Irritable bowel syndrome with constipation Excessive daytime sleepiness Difficulty sleeping Influenza A Irritable bowel syndrome with mixed bowel habits Heartburn Hiatal hernia Gastric reflux Scoliosis Vitamin D deficiency Lumbago Family history of diabetes mellitus in father Fatigue Obesity (BMI 30.0-34.9) Psoriasis of scalp Anxiety Annual physical exam Insomnia Surgical History Hx of lumbar discectomy Hx of lymph node excision Hx of esophagogastroduodenoscopy Hx of colonoscopy History of appendectomy Family History Father HTN (hypertension) Diabetes mellitus Mental health disorder Brother No problems noted. Sister No problems noted. Sister No problems noted. Sister No problems noted. Sister No problems noted. Social History Household Members: Significant Other Housing: Apartment Are you a primary care companion to a significant other at home: No Do you presently have visiting nurse or other home services: No Alcohol intake: never Comment: counts correct Patient Tobacco Use Status: Never used Tobacco e-Cigarette/Vaping Use: Never Used Substance Use Type: Marijuana service: No Current occupational status: employed Cognitive needs: No Hearing needs: No Vision needs: Yes Female Reproductive History Menstrual Date of last menstrual period: 02/19/25 Date of last pap smear: 05/02/23 Other: Goes to [facility] Questionnaire PHQ-9 Over the last 2 weeks, how often have you been bothered by any of the following problems? 1. Little interest or pleasure in doing things: not at all 2. Feeling down, depressed, or hopeless: not at all 3. Trouble falling or staying asleep, or sleeping too much: nearly every day 4. Feeling tired or having little energy: nearly every day 5. Poor appetite or overeating: several days 6. Feeling bad about yourself - or that you are a failure or have let yourself or your family down: not at all 7. Trouble concentrating on things, such as reading the newspaper or watching television: not at all 8. Moving or speaking so slowly that other people could have noticed. Or the opposite - being so fidgety or restless that you have been moving around a lot more than usual: not at all 9. Thoughts that you would be better off or of hurting yourself in some way: not at all Total score: 7 Depression Screening Interpretation: Negative Depression Screening Done: Yes Source: Developed by Drs. Abdirahman Gill, Denise Bermudez, Damian Delaney and colleagues, with an educational pascual from [employer]. Thrive Questionnaire Date Thrive assessed: 03/07/25 I am a: Patient What is your living situation today?: I have a steady place to live Within the past 12 months, did the food you bought not last and you didn't have the money to get more?: Never true Within the past 12 months, did you worry whether your food would run out before you got money to buy more?: Never true Do you have trouble paying for medicines?: No Do you have trouble getting transportation to medical appointments?: No Do you have trouble paying your heating and electricity bill?: No Do you have trouble taking care of your child, family member or friend?: No Do you have trouble with day-to-day activities such as bathing, preparing meals, shopping, managing finances, etc.?: No Are you currently unemployed and looking for a job?: No Are you interested in more education?: No Please select the resources that you would like help with: None Currently or been in a relationship where the following occur: No concerns reported THRIVE Score: 0 AUDIT C Alcohol Use Questionnaire (AUDIT-C) 1. How often do you have a drink containing alcohol?: Monthly or less 2. How many drinks containing alcohol do you have on a typical day when you are drinking?: 1 or 2 3. How often do you have six or more drinks on one occasion?: Never Total Score: 1 POOL-7 AMB Questionnaire POOL-7 Date POOL - 7 assessed: 10/16/23 Feeling nervous, anxious, or on edge: 1 = Several days Not being able to stop or control worryin = Not at all Worrying too much about different things: 1 = Several days Trouble relaxin = Not at all Being so restless that it is hard to sit still: 0 = Not at all Becoming easily annoyed or irritable: 1 = Several days Feeling afraid as if something awful might happen: 0 = Not at all Total POOL-7 score (0-4 normal; 5-9 mild; 10-14 moderate; 15-21 severe): 3 Source: Developed by Drs. Abdirahman Gill, Denise Bermudez, Damian Delaney and colleagues, with an educational pascual from [employer]. POOL-7 Assessment Billing POOL-7 Assessment Tool: POOL-7 Assessment 74790 Review of Systems Const All systems reviewed & are unremarkable except as noted in HPI and below Reports weight loss Physical exam (Primary Care) Vital Signs: Last Vital Signs Temp 98.7 F 03/07/25 09:57 Pulse 73 03/07/25 09:57 Resp 16 03/07/25 09:57 BP 106/60 03/07/25 09:57 Pulse Ox 100 03/07/25 09:57 Oxygen Delivery Method Room Air 03/07/25 09:57 BMI result Body Mass Index 35.1 Tobacco/Smoking Status: Tobacco use Status Tobacco use date assessed 03/07/25 03/07/25 09:58 Patient Tobacco Use Status Never used Tobacco 03/07/25 09:58 e-Cigarette/Vaping Use Never Used 03/07/25 09:58 PHQ-9: PHQ-9 Score PHQ-9: Total score 7 03/07/25 10:54 Depression Screening Interpretation: Negative Thrive Assessment: Date of Thrive Assessment Date Thrive assessed 03/07/25 03/07/25 09:58 Currently or been in a relationship where the following occur: No concerns reported Const General: no acute distress and alert Orientation/consciousness: patient oriented x3 HENMT Ears: external ears normal General nose exam: Normal external nose present Mouth: moist mucous membranes Eyes General: appearance normal, both eyes and all related structures Neck Neck: Yes full ROM, Yes no lymphadenopathy and Yes supple Chest Chest palpation & inspection: normal inspection of the chest Breast/axilla palpation: normal palpation of the breasts and normal palpation of the axillae Resp Effort & Inspection: normal respiratory effort and able to speak in complete sentences Auscultation: clear to auscultation bilaterally Cardio Rate: regular rate Rhythm: regular rhythm Heart sounds: S1 normal heart sound present and S2 normal heart sound present GI Palpation (GI): Soft to palpation, nontender and no masses Auscultation: normal bowel sounds Rectal Exam - Female: visual inspection normal, normal sphincter tone, No External hemorrhoid(s) present, No Lesions present (GI), No Anal fissure(s) present, No hemorrhoids and No Excoriation present (GI) General: Yes deferred (sees [facility]MANAGER [facility] at [facility]) Back/Spine/Pelvis Back: No back tenderness Skin General skin exam: no rashes or lesions noted Neuro General: patient oriented x3, gait normal, tone normal, moves all extremities and no focal motor deficits Extrem General: Yes full ROM, Yes no joint enlargement, Yes no clubbing, cyanosis or edema and Yes no calf tenderness Psych Appearance: grossly normal and well kempt Mental Status: mental status grossly normal Speech and movement: Normal speech and movement present Affect: normal affect Coding Level of Care Code Est Pt Prev Care 18-39y(28171) Diagnoses Annual visit for general adult medical examination with abnormal findings Z00.01 Obesity (BMI 30.0-34.9) E66.9 Difficulty sleeping G47.9 Excessive daytime sleepiness G47.19 Vitamin D deficiency E55.9 Nocturnal cough R05.8 Irritable bowel syndrome with constipation K58.1 Heartburn R12 BRBPR (bright red blood per rectum) K62.5 Fatigue R53.83 Additional Codes POOL-7 Assessment Billing - POOL-7 Assessment Tool: POOL-7 Assessment 53160 ([id number]) Assessment & Plan Assessment & Plan (1) Annual visit for general adult medical examination with abnormal findings: Code(s): Z00.01 - Encounter for general adult medical examination with abnormal findings Plan: Will check appropriate labs. Recommended dental visit every 6 months and regular eye exams, at least every 2 years. Take adequate calcium in diet and vitamin-D 3 at 2000 IU per cap once a day, in addition to weight-bearing exercises to help maintain good muscle tone and weight control. Instructed to do self-breast exam, and recommended to get yearly mammogram, starting at age 41 goes to [facility] for her routine Pap and pelvic exam, last Pap smear was 2021 showing normal findings.m up-to-date with her Tdap, but does not want to get further COVID vaccines or flu shot (2) Obesity (BMI 30.0-34.9): Code(s): E66.9 - Obesity, unspecified Category: Medical (3) Difficulty sleeping: Code(s): G47.9 - Sleep disorder, unspecified Category: Medical (4) Excessive daytime sleepiness: Code(s): G47.19 - Other hypersomnia Category: Medical (5) Vitamin D deficiency: Code(s): E55.9 - Vitamin D deficiency, unspecified Category: Medical (6) Nocturnal cough: Code(s): R05.8 - Other specified cough (7) Irritable bowel syndrome with constipation: Code(s): K58.1 - Irritable bowel syndrome with constipation Category: Medical (8) Heartburn: Code(s): R12 - Heartburn Category: Medical (9) BRBPR (bright red blood per rectum): Code(s): K62.5 - Hemorrhage of anus and rectum (10) Fatigue: Code(s): R53.83 - Other fatigue Plan Patient was informed and verbally consented to the use of an ambient scribe for clinic note documentation during this visit. A sleep study is recommended to evaluate for potential sleep apnea due to persistent sleep disturbance and fatigue. Blood work including complete blood count, vitamin D, thyroid, B12, cholesterol, and glucose levels ordered An upper GI series is planned to assess for gastroesophageal reflux disease, and famotidine is recommended for symptom management. Dicyclomine is prescribed to regulate bowel movements, and dietary adjustments including increased fiber intake are advised. A suppository is prescribed to manage hemorrhoids, and prevention of straining during bowel movements is emphasized. Discussed need to lose weight. Recommended focusing on improving your health instead of dieting. : Eat Mediterranean diet, limit foods high in fat, sugar, and calories, eat slowly, pay attention to portion sizes, plan your meals ahead of time, start regular moderate intensity physical activity, at [id number] minutes or 90 minutes/week of Orders: Orders Vitamin D 25-OH Total 03/07/25 E55.9 - Vitamin D deficiency, unspecified, E66.9 - Obesity, unspecified, Z00.00 - Encounter for general adult medical examination without abnormal findings Basic Metabolic Panel Fasting 03/07/25 E55.9 - Vitamin D deficiency, unspecified, E66.9 - Obesity, unspecified, Z00.00 - Encounter for general adult medical examination without abnormal findings Alanine Aminotransferase 03/07/25 E55.9 - Vitamin D deficiency, unspecified, E66.9 - Obesity, unspecified, Z00.00 - Encounter for general adult medical examination without abnormal findings Complete Blood Count Auto Diff 03/07/25 E55.9 - Vitamin D deficiency, unspecified, E66.9 - Obesity, unspecified, Z00.00 - Encounter for general adult medical examination without abnormal findings TSH reflex Free T4 03/07/25 E55.9 - Vitamin D deficiency, unspecified, E66.9 - Obesity, unspecified, Z00.00 - Encounter for general adult medical examination without abnormal findings Vitamin B12 and Folate 03/07/25 E55.9 - Vitamin D deficiency, unspecified, E66.9 - Obesity, unspecified, Z00.00 - Encounter for general adult medical examination without abnormal findings Aspartate Amino Transferase 03/07/25 E55.9 - Vitamin D deficiency, unspecified, E66.9 - Obesity, unspecified, Z00.00 - Encounter for general adult medical examination without abnormal findings Lipid Panel 03/07/25 E55.9 - Vitamin D deficiency, unspecified, E66.9 - Obesity, unspecified, Z00.00 - Encounter for general adult medical examination without abnormal findings FL upper GI series 03/07/25 R05.8 - Other specified cough Referrals Sleep Medicine Referral E66.9 - Obesity, unspecified, G47.19 - Other hypersomnia, G47.9 - Sleep disorder, unspecified Medications: New famotidine 40 mg PO BEDTIME 30 tabs 1RF dicyclomine 10 mg PO BID 60 caps 0RF hydrocortisone acetate 25 mg WV BEDTIME 24 ea 0RF K62.5 - Hemorrhage of anus and rectum
[2025-03-07 09:57] VITALS: BP 106/60; PULSE 73; RESP 16; TEMP 37.1; O2SAT 100; BMI 35.1
--- OUTSIDE RECORDS SUMMARY | 2025-03-07 11:01 | XMS_ITS | Encounter Summary ---
Author Organization [facility] Address [address] [place] [address] Phone Care Team Providers Care Scale And Skip Car Operator Name Role Phone Jaqueline Mitchell MD Primary Care Provider Encounter Details Date Type Department Care Team (Late st Contact Info) Description 09/14/2009 Documentation [facility] [place] Family Medicine [address] [place] [address] Family Medicine, Physician [address] [place], [place] [phone] Social History Tobacco Use Types Packs/Day Years Used Date Smoking Tobacco: Never Assessed Comments Unknown Sex and Gender Information Value Date Recorded Sex Assigned at Not on file Legal Sex Female 4:50 PM EDT Gender Identity Not on file Sexual Orientation Not on file documented as of this encounter Plan of Treatment Not on file documented as of this encounter Visit Diagnoses Not on filedocumented in this encounter Care Teams Scale And Skip Car Operator Relationship Specialty Start Date End Date Jaqueline Mitchell MD [address] [place] [address] CAM Blue [id number] PCP - General 02/07/17 10/09/22 documented as of this encounter
--- OUTSIDE RECORDS SUMMARY | 2025-03-07 11:01 | XMS_ITS | Encounter Summary ---
Author Organization [facility] Address [address] [place] [address] Phone Care Team Providers Care Tapper Hand Name Role Phone Jaqueline Mitchell MD Primary Care Provider Encounter Details Date Type Department Care Team (Late st Contact Info) Description 01/28/2011 Documentation [facility] [place] Family Medicine [address] [place] [address] Family Medicine, Physician [address] [place], [place] [phone] Social History Tobacco Use Types Packs/Day Years [...] on filedocumented in this encounter Care Teams Tapper Hand Relationship Specialty Start Date End Date Jaqueline Mitchell MD [address] [place] [address] CAM Blue [address] PCP - General 02/07/17 10/09/22 documented as of this encounter
--- OUTSIDE RECORDS SUMMARY | 2025-03-07 11:01 | XMS_ITS | Encounter Summary ---
Author Organization [facility] Address [address] [place] [address] Phone Care Team Providers Care Director Decision Support Name Role Phone Jaqueline Mitchell MD Primary Care Provider Encounter Details Date Type Department Care Team (Late st Contact Info) Description 02/13/2017 Conversion Encounter [facility] [place] [address] [place] [address] Social History Tobacco Use Types Packs/Day Years Used Date Smoking Tobacco: Never Comments:Never smoker Comments Unknown Sex and Gender Information Value Date Recorded Sex Assigned at Not on file Legal Sex Female 4:50 PM EDT Gender Identity Not on file Sexual Orientation Not on file documented as of this encounter Plan of Treatment Not on file documented as of this encounter Visit Diagnoses Not on filedocumented in this encounter Care Teams Director Decision Support Relationship Specialty Start Date End Date Jaqueline Mitchell MD [address] [place] [address] PCP - General 02/07/17 10/09/22 documented as of this encounter
--- OUTSIDE RECORDS SUMMARY | 2025-03-07 11:01 | XMS_ITS | Encounter Summary ---
Author Organization [facility] Address [address] [place] [address] Phone Care Team Providers Care Laborer Shaft Sinking Name Role Phone Jaqueline Mitchell MD Primary Care Provider Encounter Details Date Type Department Care Team (Late st Contact Info) Description 09/18/2009 Documentation [facility] [place] Family Medicine [address] [place] [address] Family Medicine, Physician [address] [place], [place] [phone] Social History Tobacco Use Types Packs/Day Years [...] on filedocumented in this encounter Care Teams Laborer Shaft Sinking Relationship Specialty Start Date End Date Jaqueline Mitchell MD [address] [place] [address] CAM Blue [address] PCP - General 02/07/17 10/09/22 documented as of this encounter
--- OUTSIDE RECORDS SUMMARY | 2025-03-07 11:01 | XMS_ITS | Encounter Summary ---
Author Organization [facility] Address [address] [place] [address] Phone Care Team Providers Care Fuel Operator Name Role Phone Jaqueline Mitchell MD Primary Care Provider [phone] Encounter Details Date Type Department Care Team (Late st Contact Info) Description 03/08/2011 Documentation [facility] [place] Family Medicine [address] [place] [address] Family Medicine, Physician [address] [place], [place] [phone] Social History Tobacco Use Types Packs/Day Years [...] on filedocumented in this encounter Care Teams Fuel Operator Relationship Specialty Start Date End Date Jaqueline Mitchell MD [address] [place] [address] CAM Blue [address] PCP - General 02/07/17 10/09/22 documented as of this encounter
--- OUTSIDE RECORDS SUMMARY | 2025-03-07 11:01 | XMS_ITS | Encounter Summary ---
Author Organization [facility] Address [address] [place] [address] Phone Care Team Providers Care Nursing Specialist Name Role Phone Jaqueline Mitchell MD Primary Care Provider [phone] Encounter Details Date Type Department Care Team (Late st Contact Info) Description 09/18/2009 Documentation [facility] [place] [address] [place] [address] Family Medicine, Physician [address] [place], [place] [phone] Social History Tobacco Use Types Packs/Day Years [...] on filedocumented in this encounter Care Teams Nursing Specialist Relationship Specialty Start Date End Date Jaqueline Mitchell MD [address] [place] [address] CAM Blue [address] PCP - General 02/07/17 10/09/22 documented as of this encounter
--- OUTSIDE RECORDS SUMMARY | 2025-03-07 11:01 | XMS_ITS | Encounter Summary ---
Author Organization [facility] Address [address] [place] [address] Phone Care Team Providers Care Ingot Car Operator Name Role Phone Jaqueline Mitchell MD Primary Care Provider Encounter Details Date Type Department Care Team (Late st Contact Info) Description 09/22/2009 Documentation [facility] [place] Family Medicine [address] [place] [address] Family Medicine, Physician [address] [place], [place] [phone] Social History Tobacco Use Types Packs/Day Years [...] on filedocumented in this encounter Care Teams Ingot Car Operator Relationship Specialty Start Date End Date Jaqueline Mitchell MD [address] [place] [address] CAM Blue [id number] PCP - General 02/07/17 10/09/22 documented as of this encounter
--- OUTSIDE RECORDS SUMMARY | 2025-03-07 11:01 | XMS_ITS | Encounter Summary ---
Author Organization [facility] Address [address] [place] [phone] Phone Care Team Providers Care Softball Player Name Role Phone Jaqueline Mitchell MD Primary Care Provider Encounter Details Date Type Department Care Team (Late st Contact Info) Description 12/11/2015 Documentation [facility] [place] Family Medicine [address] [place] [address] Family Medicine, Physician [address] [place], [place] [phone] Social History Tobacco Use Types Packs/Day Years [...] on filedocumented in this encounter Care Teams Softball Player Relationship Specialty Start Date End Date Jaqueline Mitchell MD [address] [facility] CAM Blue [address] PCP - General 02/07/17 10/09/22 documented as of this encounter
--- OUTSIDE RECORDS SUMMARY | 2025-03-07 11:01 | XMS_ITS | Encounter Summary ---
Author Organization [facility] Address [address] [place] [address] Phone Care Team Providers Care Spinner Hydraulic Name Role Phone Jaqueline Mitchell MD Primary Care Provider Encounter Details Date Type Department Care Team (Late st Contact Info) Description 02/12/2010 Documentation [facility] [place] Family Medicine [address] [place] [address] Family Medicine, Physician [address] [place], [place] [phone] Social History Tobacco Use Types Packs/Day Years [...] on filedocumented in this encounter Care Teams Spinner Hydraulic Relationship Specialty Start Date End Date Jaqueline Mitchell MD [address] [place] [address] CAM Blue [address] PCP - General 02/07/17 10/09/22 documented as of this encounter
--- OUTSIDE RECORDS SUMMARY | 2025-03-07 11:01 | XMS_ITS | Clinical Summary ---
Author Organization [facility] Address [address] [place] [address] Phone Care Team Providers Care Nursing Student Name Role Phone Unavailable Primary Care Provider Unavailabl e Immunizations Immunization Administration Dates Next Due DTP 09/20/1997, 7,01/05/1997,05/26 DTaP 5 04/30/2000 HPV, Quadrivalent 04/24/2010,03/07/2009,11/24/19 08 Hep B, ped/adol 01/05/1997,1996,1996 Hib (PRP-T) 07/11/1997, 7,01/05/1997,05/26 IPV 04/30/2000 Influenza Split 04/30/2012,04/26/2011,04/24/2010 Influenza, injectable, quadr ivalent, preservative free 06/01/2013 Influenza, injectable, trivalent 04/07/2009 MMR 04/30/2000,05/02/1997 Meningococcal Conj (Menactra) MCV4P 11/24/2007 OPV 04/25/1997,01/05/1997,1996 Tdap 11/24/2007 Varicella 11/24/2007,04/30/1999 Family History Relation Name Status Comments Brother Alive Brother: Alive and well Father Father: Migrain es, Depression, Anxiety Maternal Grandfather Materna l grandfather: Deafness Maternal Grandmother Alive Materna l grandmother: Diabetes asthma Maternal Great-Grandmother M GA: Sudden /NC under age 55 Mother Alive Mother: Alive a nd well Other No family histo ry of *CVA/Stroke, No family history of *Dental caries, No family history of *Sudden /NC under 55, No family history of *Thrombophilia, No family history of *Heart Disease Sister 1 Alive Sister: Alive a nd well, Alive and well, Alive and well, Alive and well Sister 2 Alive Sister: Alive a nd well, Alive and well, Alive and well, Alive and well Sister 3 Alive Sister: Alive a nd well, Alive and well, Alive and well, Alive and well Sister 4 Alive Sister: Alive a nd well, Alive and well, Alive and well, Alive and well Social History Tobacco Use Types Packs/Day Years Used Date Smoking Tobacco: Never Comments:Never smoker Comments Unknown Sex and Gender Information Value Date Recorded Sex Assigned at Not on file Legal Sex Female 4:50 PM EDT Gender Identity Not on file Sexual Orientation Not on file Last Filed Vital Signs Vital Sign Reading Time Taken Comments Blood Pressure 121/84 02/07/2015 12:00 AM EDT Pulse 88 02/07/2015 12:00 AM EDT Temperature 36.9 C (98.5 F) 02/07/2015 12:00 AM EDT Respiratory Rate - - Oxygen Saturation 100% 09/05/2011 12: 00 AM EST Inhaled Oxygen Concentration - - Weight 55.7 kg (122 lb 12.8 oz) 015 12:00 AM EDT Height 153.7 cm (5' 0.5 ) 02/07/2015 12 :00 AM EDT Body Mass Index 23.59 02/07/2015 12:00 AM EDT Plan of Treatment Health Maintenance Due Date Last Done Comments DTaP,Tdap,and Td Vaccines (7 - Td or Tdap) 11/23/2017 11/24/2007, 04/30/2000, 09/20/1997, Additional history exists Influenza Vaccines (#1) 2025 06/01/20 13, 04/30/2012, 04/26/2011, Additional history exists COVID-19 Vaccine ( season) 2025 Hepatitis B Vaccines Completed 01/05/1997, 1996, 1996 HIB Vaccines Completed 07/11/1997, 03/31, 01/05/1997, Additional history exists IPV Vaccines Completed 04/30/2000, 03/31, 01/05/1997, Additional history exists MMR Vaccines Completed 04/30/2000, 05/02/1997 Meningococcal Vaccine Aged Out 11/24/2007 No akhil atiya eligible based on patient's age to complete this topic Varicella Vaccines Completed 11/24/2007, 04/30/1999 HPV Vaccines Completed 04/24/2010, 01/2009, 11/24/2007 Hepatitis A Vaccines Aged Out No long er eligible based on patient's age to complete this topic Men B Vaccine Aged Out No longer elig ible based on patient's age to complete this topic Pneumococcal Vaccine Aged Out No long er eligible based on patient's age to complete this topic Procedures * Due to [facility] law, this organization might not be sharing sensitive test results. Procedure Name Priority Date/Time Associated Diagnosis Comments CHLAMYDIA AND GONORRHEA, AMPLIFIED Routine 07/31/2010 3:11 PM EST from Last 3 Months or Most Recently Relevant to Health Maintenance Results * Due to [place] law, this organization might not be sharing sensitive test results. * Chlamydia and Gonorrhoea, Amplified (07/31/2010 3:11 PM EST) [facility] URINE [employer] AMP PROBE NEGATIVE [facility] Comment: NO NEISSERIA GONORRHOEAE RNA DETECTED IN THIS PATIENT'S SAMPLE. (REFERENCE RANGE/NORMAL VALUE: NOT DETECTED) NOTE: THIS TEST USES PIN SORTER AND BAGGER MEDIATED AMPLIFICATION METHOD TO DETECT rRNA FROM C.TRACHOMATIS AND N.GONORRHOEAE. A NEGATIVE RESULT DOES NOT PRECLUDE INFECTION WITH C.TRACHOMATIS OR N.GONORRHOEAE BECAUSE RESULTS ARE DEPENDENT ON ADEQUATE SPECIMEN COLLECTION, ABSENCE OF INHIBITORS, AND SUFFICIENT rRNA TO BE DETECTED. THE APTIMA COMBO2 ASSAY IS NOT INTENDED FOR THE EVALUATION OF SUSPECTED SEXUAL ABUSE OR FOR OTHER MEDICO LEGAL INDICATIONS. IS TRUE FOR ALL NON CULTURE METHODS, A POSITIVE SPECIMEN OBTAINED FROM A PATIENT AFTER THERAPEUTIC TREATMENT CANNOT BE INTERPRETED INDICATING THE PRESENCE OF VIABLE C.TRACHOMATIS OR N.GONORRHOEAE. THERAPEUTIC FAILURE OR SUCCESS CANNOT BE DETERMINED WITH THE APTIMA COMBO2 ASSAY SINCE NUCLEIC ACID MAY PERSIST FOLLOWING APPROPRIATE ANTIMICROBIAL THERAPY. A NEGATIVE URINE RESULT FOR A PATIENT WHO IS CLINICALLY SUSPECTED OF HAVING A CHLAMYDIAL OR GONOCOCCAL INFECTION DOES NOT RULE OUT THE PRESENCE OF C.TRACHOMATIS OR N.GONORRHOEAE IN THE UROGENITAL TRACT. TESTING OF AN ENDOCERVICAL(FEMALE) OR URETHRAL(MALE) SPECIMEN IS RECOMMENDED IF THERE IS HIGH CLINICAL SUSPICION OF INFECTION. PRESERVCYT LIQUID PAP AND URINE SAMPLING ARE NOT DESIGNED TO REPLACE CERVICAL EXAMS AND ENDOCERVICAL SAMPLES FOR DIAGNOSIS OF FEMALE UROGENITAL INFECTIONS. PATIENTS MAY HAVE CERVICITIS, URETHRITIS, URINARY TRACT INFECTIONS, OR VAGINAL INFECTIONS DUE TO OTHER CAUSES OR CONCURRENT INFECTIONS WITH OTHER AGENTS. URINE CHLAMYDIA AMP PROBE NEGATIVE [facility] Comment: NO CHLAMYDIA TRACHOMATIS RNA DETECTED IN THIS PATIENT'S SAMPLE. (REFERENCE RANGE/NORMAL VALUE: NOT DETECTED) 07/31/2010 3:11 PM EST Narrative [facility] - 07/31/2010 3:11 PM EST URINE CHLAMYDIA GC AMP PROBE us Devika Markham NP LAB MICROBIOLOGY - GENERA L ORDERABLES Final Result [facility] [address] [place] [address], [place] from Last 3 Months or Most Recently Relevant to Health Maintenance
== END 2025-03-07 12:01 | disposition home or self-care (01) ==
LOC: HO.HMCC 09:39
PROVIDERS: PCP Internal Medicine; Visit Provider Internal Medicine
DX: Z00.01 Encounter for general adult medical examination with abnormal findings (principal); E66.9 Obesity, unspecified; Z68.35 Body mass index [BMI] 35.0-35.9, adult; G47.9 Sleep disorder, unspecified; G47.19 Other hypersomnia; E55.9 Vitamin D deficiency, unspecified; R05.8 Other specified cough; K58.1 Irritable bowel syndrome with constipation; R12 Heartburn; K62.5 Hemorrhage of anus and rectum; R53.83 Other fatigue

== ENCOUNTER 2025-05-31 07:22 | Outpatient (AMB) | payer OTHER, SELFPAY ==
--- OUTSIDE RECORDS SUMMARY | 2025-05-31 07:25 | XMS_ITS | Clinical Summary ---
Author Organization [facility] Address [address] [place] [address] Phone Care Team Providers Care Marble Polisher Name Role Phone Joceline Mcmahon MD Primary Care Provider [phone] Allergies Active Allergy Reactions Criticality Noted Date Comments Amoxicillin 05/02/2022 Cephalexin 05/02/2022 Medications escitalopram (LEXAPRO) 20 mg tablet Take 1 tablet (20 mg total) by mouth 1 (one) time each day. 02/17/2024 Active docusate sodium (COLACE) 100 mg capsule Take 1 capsule (100 mg total) by mouth 2 (two) times a day. 01/15/2024 Active desogestreL-eth inyl estradioL (Apri) 0.15-0.03 mg per tablet Take 1 tablet by mouth 1 (one) time each day. For 360 days 04/20/2024 Active Surgical History Surgery Date Site/Laterality Comments WISDOM TOOTH EXTRACTION PROCEDURE: HISTORICAL WISDOM TEETH EXTRACTION APPENDECTOMY PROCEDURE: HISTORICAL APPENDECTOMY OTHER SURGICAL HISTORY PROCEDURE: [place] UNLISTED LAPAROSCOPY PX INTESTINE XCP RECTUM; COMMENT: intussusception OTHER SURGICAL HISTORY 05/2023 PROCEDURE: HISTORY OTHER; COMMENT: back surgery , microdisectomy Medical History Medical History Date Comments History of IBS DX:History of IB S Intussusception intestine (C MS/HCC V24, CMS/HCC V28) DX:Intussusception intestine (HCC) Family History Medical History Relation Name Comments No Known Problems Brother x1 Coronary artery disease Father ahea rt attack after pace maker Depression Father Diabetes Father Dementia Maternal Grandfather Diabetes Maternal Grandfather Diabetes Maternal Grandmother Heart failure Maternal Grandmother Other: diverticulosis Mother Dementia Paternal Grandfather No Known Problems Paternal Grandmother No Known Problems Sister x4 Breast cancer Neg Hx Ovarian cancer Neg Hx Relation Name Status Comments Brother x1 Alive Father Maternal Grandfather Maternal Grandmother Mother Alive Paternal Grandfather Paternal Grandmother Alive Sister x4 Alive Social History Tobacco Use Types Packs/Day Years Used Date Smoking Tobacco: Never Smokeless Tobacco: Never Alcohol Use Standard Drinks/Week Comments Yes 0 (1 standard drink = 0.6 oz pur e alcohol) Comments Unknown Sex and Gender Information Value Date Recorded Sex Assigned at Not on file Legal Sex Female 11:36 PM EST Gender Identity Not on file Sexual Orientation Not on file Obstetrics History Last Filed Vital Signs Vital Sign Reading Time Taken Comments Blood Pressure 100/69 04/20/2024 8:48 AM EDT Pulse 75 04/20/2024 8:48 AM EDT Temperature - - Respiratory Rate - - Oxygen Saturation - - Inhaled Oxygen Concentration - - Weight 86.2 kg (190 lb) 04/20/2024 8:48 AM EDT Height 154.9 cm (5' 1 ) 04/20/2024 8:48 AM EDT Body Mass Index 35.9 04/20/2024 8:48 AM EDT Plan of Treatment Upcoming Encounters Date Type Department Care Team (Late st Contact Info) Description 08/16/2025 3:30 PM EST Office Visit Obstetrics and Gynecology - [address] [phone] Nabila Euceda, [facility] [address] [place] [address] Health Maintenance Due Date Last Done Comments DTaP,Tdap,and Td Vaccines (1 - Tdap) 2015 Hepatitis B Vaccines (1 of 3 - 19+ 3-dose series) 2015 HIV Screening 06/02/2022 Hepatitis C Screening 06/02/2022 Social Influencers of Health Screening 06/02/2022 HPV Vaccines (1 - 3-dose SCD M series) 2023 Depression Screening 06/30/2024 COVID-19 Vaccine ( - 2024-2 6 season) 2025 Influenza Vaccine (#1) 2025 Cervical Cancer Screening: P ap Smear 05/02/2025 05/02/2022, 05/02/2022 RSV Immunization Adult Patients (1 - 1-dose 75+ series) 2071 HIB Vaccines Aged Out No longer eligi ble based on patient's age to complete this topic Hepatitis A Vaccines Aged Out No long er eligible based on patient's age to complete this topic IPV Vaccines Aged Out No longer eligi ble based on patient's age to complete this topic MMR Vaccines Aged Out No longer eligi ble based on patient's age to complete this topic Meningococcal ACWY Vaccine Aged Out N o longer eligible based on patient's age to complete this topic Meningococcal B Vaccine Aged Out No l onger eligible based on patient's age to complete this topic Pneumococcal Vaccine: Pediatrics (0 to 5 Years) and At-Risk Patients (6 to 49 Years) Aged Out No longer eligible b ased on patient's age to complete this topic RSV Immunization Patients Under 20 months Aged Out No longer eligible b ased on patient's age to complete this topic Varicella Vaccines Aged Out No longer eligible based on patient's age to complete this topic Procedures Procedure Name Priority Date/Time Associated Diagnosis Comments PAP SMEAR Routine 05/02/2022 from Last 3 Months or Most Recently Relevant to Health Maintenance Results * Pap smear (05/02/2022) 05/02/2022 Narrative [facility]ISTOR[facility] TESTING LAB RESULTING AGENCY - 05/08/2022 2:30 PM EST [id number] THINPREP PAP, IMAGED: NEGATIVE FOR SQUAMOUS INTRAEPITHELIAL LESION AND MALIGNANCY . GENO LEIJA(ASCP) (CASE ELECTRONICALLY SIGNED 05 08 2022) ADEQUACY: SATISFACTORY ENDOCERVICAL/TRANSFORMATION ZONE COMPONENT ABSENT. SOURCE: THINPREP PAP HPV IF ASCUS: REFLEX 16 AND 18, CERVICAL, IMAGED CLINICAL INFORMATION: HPV IF DIAGNOSIS OF ASCUS. HORMONES, Z12.4 Raya DWYER LAB CYTOLOGY ORDERABLES Final Result [facility]ISTOR[facility] TESTING LAB RESULTING AGENCY from Last 3 Months or Most Recently Relevant to Health Maintenance Insurance [facility] Care Teams Marble Polisher Relationship Specialty Start Date End Date Joceline Mcmahon MD [address] [facility] [place] [address] PCP - General 05/02/22
--- OUTSIDE RECORDS SUMMARY | 2025-05-31 07:25 | XMS_ITS | Encounter Summary ---
Author Organization [facility] Address [address] [place] [address] Phone Care Team Providers Care Event Marketing Manager Name Role Phone Jaqueline Mitchell MD Primary Care Provider Encounter Details Date Type Department Care Team (Late st Contact Info) Description 02/12/2010 Documentation [facility] [place] [address] [place] [address] Family Medicine, Physician [address] [place], [place] [phone] Social History Tobacco Use Types Packs/Day Years [...] on filedocumented in this encounter Care Teams Event Marketing Manager Relationship Specialty Start Date End Date Jaqueline Mitchell MD [address] [place] [address] CAM Blue [address] PCP - General 02/07/17 10/09/22 documented as of this encounter
--- OUTSIDE RECORDS SUMMARY | 2025-05-31 07:25 | XMS_ITS | Encounter Summary ---
Author Organization [facility] Address [address] [place] [address] Phone Care Team Providers Care Echo Vasc Tech Name Role Phone Jaqueline Mitchell MD Primary Care Provider [phone] Encounter Details Date Type Department Care Team (Late st Contact Info) Description 12/11/2015 Documentation [facility] [place] Medicine [address] [place] [address] Family Medicine, Physician [address] [place], [place] [phone] Social History Tobacco Use Types Packs/Day Years [...] on filedocumented in this encounter Care Teams Echo Vasc Tech Relationship Specialty Start Date End Date Jaqueline Mitchell MD [address] [facility] [place] [address] PCP - General 02/07/17 10/09/22 documented as of this encounter
--- OUTSIDE RECORDS SUMMARY | 2025-05-31 07:25 | XMS_ITS | Encounter Summary ---
Author Organization [facility] Address [address] [place] [address] Phone Care Team Providers Care Psychological Assistant Name Role Phone Jaqueline Mitchell MD Primary Care Provider [phone] Encounter Details Date Type Department Care Team (Late st Contact Info) Description 02/13/2017 Conversion Encounter [facility] [place] [address] [place] [address] Social History Tobacco Use Types Packs/Day Years [...] on filedocumented in this encounter Care Teams Psychological Assistant Relationship Specialty Start Date End Date Jaqueline Mitchell MD [address] [place] [address] PCP - General 02/07/17 10/09/22 documented as of this encounter
--- OUTSIDE RECORDS SUMMARY | 2025-05-31 07:25 | XMS_ITS | Encounter Summary ---
Author Organization [facility] Address [address] [place] [address] Phone Care Team Providers Care Core Stripper Name Role Phone Jaqueline Mitchell MD Primary Care Provider Encounter Details Date Type Department Care Team (Late st Contact Info) Description 09/18/2009 Documentation [facility] [place] [address] [place] [address] Family Medicine, Physician [address] [place], [place] [phone] Social History Tobacco Use Types Packs/Day Years [...] on filedocumented in this encounter Care Teams Core Stripper Relationship Specialty Start Date End Date Jaqueline Mitchell MD [address] [place] [address] CAM [place] [address] PCP - General 02/07/17 10/09/22 documented as of this encounter
--- OUTSIDE RECORDS SUMMARY | 2025-05-31 07:25 | XMS_ITS | Encounter Summary ---
Author Organization [facility] Address [address] [place] [address] Phone Care Team Providers Care Systems Consultant Name Role Phone Jaqueline Mitchell MD Primary Care Provider Encounter Details Date Type Department Care Team (Late st Contact Info) Description 01/28/2011 [place] [facility] [place] [address] [place] [address] Family Medicine, Physician [address] [place], [place] [phone] Social History Tobacco Use Types Packs/Day Years [...] on filedocumented in this encounter Care Teams Systems Consultant Relationship Specialty Start Date End Date Jaqueline Mitchell MD [address] [place] [address] CAM Blue [address] PCP - General 02/07/17 10/09/22 documented as of this encounter
--- OUTSIDE RECORDS SUMMARY | 2025-05-31 07:25 | XMS_ITS | Encounter Summary ---
Author Organization [facility] Address [address] [place] [address] Phone Care Team Providers Care Cylinder Press Feeder Name Role Phone Jaqueline Mitchell MD Primary Care Provider [phone] Encounter Details Date Type Department Care Team (Late st Contact Info) Description 09/18/2009 Document[place] [facility] [place] [address] [place] [address] Family Medicine, Physician [address] [place], [place] [phone] Social History Tobacco Use Types Packs/Day Years [...] on filedocumented in this encounter Care Teams Cylinder Press Feeder Relationship Specialty Start Date End Date Jaqueline Mitchell MD [address] [place] [address] CAM Blue [address] PCP - General 02/07/17 10/09/22 documented as of this encounter
--- OUTSIDE RECORDS SUMMARY | 2025-05-31 07:25 | XMS_ITS | Clinical Summary ---
Author Organization [facility] Address [address] [place] [address] Phone Care Team Providers Care Dinkey Operator Slag Name Role Phone Unavailable Primary Care Provider [...] Diabetes asthma Maternal Great-Grandmother M GA: Sudden /ID under age 55 Mother Alive Mother: Alive a nd well Other No family histo ry of *CVA/Stroke, No family history of *Dental caries, No family history of *Sudden /ID under 55, No family history of *Thrombophilia, [...] complete this topic Procedures * Due to [facility] law, this organization might not be sharing sensitive test results. Procedure Name Priority Date/Time Associated Diagnosis Comments CHLAMYDIA AND GONORRHEA, AMPLIFIED Routine 07/31/2010 3:11 PM EST from Last 3 Months or Most Recently Relevant to Health Maintenance Results * Due to [place] [employer] law, this organization might not be sharing sensitive test results. * Chlamydia and Gonorrhoea, Amplified (07/31/2010 3:11 PM EST) [facility] URINE [employer] AMP PROBE NEGATIVE [facility] Comment: NO NEISSERIA GONORRHOEAE RNA DETECTED IN THIS PATIENT'S SAMPLE. (REFERENCE RANGE/NORMAL VALUE: NOT DETECTED) NOTE: THIS TEST USES HOME HEALTH CARE WORKER MEDIATED AMPLIFICATION METHOD TO DETECT rRNA FROM [...] OTHER AGENTS. URINE CHLAMYDIA AMP PROBE NEGATIVE [facility] Comment: NO CHLAMYDIA TRACHOMATIS RNA DETECTED IN THIS PATIENT'S SAMPLE. (REFERENCE RANGE/NORMAL VALUE: NOT DETECTED) 07/31/2010 3:11 PM EST Narrative [facility] - 07/31/2010 3:11 PM EST URINE CHLAMYDIA GC AMP PROBE us Devika Markham NP LAB MICROBIOLOGY - GENERA L ORDERABLES Final Result [facility] [address] [place] [address], [place] from Last 3 Months or Most Recently Relevant to Health Maintenance
--- OUTSIDE RECORDS SUMMARY | 2025-05-31 07:25 | XMS_ITS | Encounter Summary ---
Author Organization [facility] Address [address] [place] [address] Phone Care Team Providers Care Medical Authorization Specialist Name Role Phone Jaqueline Mitchell MD Primary Care Provider Encounter Details Date Type Department Care Team (Late st Contact Info) Description 03/08/2011 [place] [facility] [place] [address] [place] [address] Family Medicine, Physician [address] [place], [place] [phone] Social History Tobacco Use Types Packs/Day Years [...] on filedocumented in this encounter Care Teams Medical Authorization Specialist Relationship Specialty Start Date End Date Jaqueline Mitchell MD [address] [place] [address] CAM Blue [address] PCP - General 02/07/17 10/09/22 documented as of this encounter
--- OUTSIDE RECORDS SUMMARY | 2025-05-31 07:25 | XMS_ITS | Encounter Summary ---
Author Organization [facility] Address [address] [place] [address] Phone Care Team Providers Care Bacon Stringer Name Role Phone Jaqueline Mitchell MD Primary Care Provider Encounter Details Date Type Department Care Team (Late st Contact Info) Description 09/14/2009 Documentation [facility] [place] [address] [place] [address] Family Medicine, Physician [address] [place], [place] [phone] Social History Tobacco Use Types Packs/Day Years [...] on filedocumented in this encounter Care Teams Bacon Stringer Relationship Specialty Start Date End Date Jaqueline Mitchell MD [address] [place] [address] CAM Blue [address] PCP - General 02/07/17 10/09/22 documented as of this encounter
--- OUTSIDE RECORDS SUMMARY | 2025-05-31 07:25 | XMS_ITS | Encounter Summary ---
Author Organization [facility] Address [address] [place] [address] Phone Care Team Providers Care Trimmer Sawyer Name Role Phone Jaqueline Mitchell MD Primary Care Provider Encounter Details Date Type Department Care Team (Late st Contact Info) Description 09/22/2009 Documentation [facility] [place] Family Medicine [address] [place] [address] Family Medicine, Physician [address] [place], [place] [phone] Social History Tobacco Use Types Packs/Day Years [...] on filedocumented in this encounter Care Teams Trimmer Sawyer Relationship Specialty Start Date End Date Jaqueline Mitchell MD [address] [place] [address] CAM Blue [address] PCP - General 02/07/17 10/09/22 documented as of this encounter
--- NOTE | 2025-05-31 08:01 | A.OFFPC_ITS ---
Intake Visit Reasons: discuss lexapro Packager Head Required: No Allergies amoxicillin Allergy (Severe, Verified 05/31/25 08:24) Hives, rash. ? throat closing cefprozil Allergy (Severe, Verified 05/31/25 08:24) hives,rash cephalexin Allergy (Severe, Verified 05/31/25 08:24) Hives,rash Medication List - Last Reconciled 05/31/25 by Joceline Mcmahon MD desogestrel-ethinyl estradiol 0.15-0.03 mg (Apri) 1 tab PO DAILY dicyclomine 10 mg PO BID 90 days famotidine 40 mg PO BEDTIME Tobacco use date assessed: 05/31/25 Dental Screening Dental Screen Date: 05/31/25 Did you have a dental visit in the last 12 months?: No Did you have a dental problem in the last 6 months where you did not have access to dental care?: No Was dental information given to patient?: Patient has dentist HPI discuss lexapro HPI Details The patient is a 30 year old individual presenting for medication management for anxiety and depression. The patient reports experiencing more anxiety than depression, although the patient feels both are present. 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 The patient recently experienced a week of severe anxiety and low mood, characterized by crying easily over minor things. The patient was previously on Lexapro 20 mg, which was effective for symptoms and also helped with sleep. The patient switched to taking it from morning to nighttime administration due to daytime fatigue. Side effects included a slight decrease in libido. The patient has previously stopped taking the medication abruptly. The patient is currently receiving therapy through [facility] but is having difficulty getting an appointment with a psychiatrist. The patient's therapist recommended journaling to identify triggers. [facility] Medical History (Updated 05/31/25 @ 08:34 by Joceline Mcmahon MD) Anxiety and depression Excessive daytime sleepiness Influenza A Irritable bowel syndrome with mixed bowel habits Heartburn Hiatal hernia Gastric reflux Scoliosis Vitamin D deficiency Obesity (BMI 30.0-34.9) Psoriasis of scalp Insomnia Surgical History Hx of lumbar discectomy Hx of lymph node excision Hx of esophagogastroduodenoscopy Hx of colonoscopy History of appendectomy Family History Father HTN (hypertension) Diabetes mellitus Mental health disorder Brother No problems noted. Sister No problems noted. Sister No problems noted. Sister No problems noted. Sister No problems noted. 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 1. Little interest or pleasure in doing things: not at all 2. Feeling down, depressed, or hopeless: not at all 3. Trouble falling or staying asleep, or sleeping too much: nearly every day 4. Feeling tired or having little energy: more than half the days 5. Poor appetite or overeating: several days 6. Feeling bad about yourself - or that you are a failure or have let yourself or your family down: not at all 7. Trouble concentrating on things, such as reading the newspaper or watching television: not at all 8. Moving or speaking so slowly that other people could have noticed. Or the opposite - being so fidgety or restless that you have been moving around a lot more than usual: not at all 9. Thoughts that you would be better off or of hurting yourself in some way: not at all Total score: 6 Depression Screening Interpretation: Negative Depression Screening Done: Yes Source: Developed by Drs. Abdirahman Gill, Denise Bermudez, Damian Delaney and colleagues, with an educational pascual from [employer]. Thrive Questionnaire Date Thrive assessed: 03/07/25 I am a: Patient What is your living situation today?: I have a steady place to live Within the past 12 months, did the food you bought not last and you didn't have the money to get more?: Never true Within the past 12 months, did you worry whether your food would run out before you got money to buy more?: Never true Do you have trouble paying for medicines?: No Do you have trouble getting transportation to medical appointments?: No Do you have trouble paying your heating and electricity bill?: No Do you have trouble taking care of your child, family member or friend?: No Do you have trouble with day-to-day activities such as bathing, preparing meals, shopping, managing finances, etc.?: No Are you currently unemployed and looking for a job?: No Are you interested in more education?: No Please select the resources that you would like help with: None Currently or been in a relationship where the following occur: No concerns reported THRIVE Score: 0 AUDIT C Alcohol Use Questionnaire (AUDIT-C) 1. How often do you have a drink containing alcohol?: Monthly or less 2. How many drinks containing alcohol do you have on a typical day when you are drinking?: 1 or 2 3. How often do you have six or more drinks on one occasion?: Never Total Score: 1 POOL-7 AMB Questionnaire POOL-7 Date POOL - 7 assessed: 10/16/23 Feeling nervous, anxious, or on edge: 1 = Several days Not being able to stop or control worryin = Several days Worrying too much about different things: 1 = Several days Trouble relaxin = Not at all Being so restless that it is hard to sit still: 0 = Not at all Becoming easily annoyed or irritable: 1 = Several days Feeling afraid as if something awful might happen: 0 = Not at all Total POOL-7 score (0-4 normal; 5-9 mild; 10-14 moderate; 15-21 severe): 4 Source: Developed by Drs. Abdirahman Gill, Denise Bermudez, Damian Delaney and colleagues, with an educational pascual from [employer]. Review of Systems Const All systems reviewed & are unremarkable except as noted in HPI and below Reports weight loss ENT Reports no additional complaints Card Denies chest pain, Denies irregular heart rhythm, Denies lightheadedness and Denies dyspnea Resp Denies dyspnea GI Reports no additional complaints Neuro Reports no additional complaints Psych Reports as per HPI Physical exam (Primary Care) Tobacco/Smoking Status: Tobacco use Status Tobacco use date assessed 05/31/25 05/31/25 08:04 Patient Tobacco Use Status Never used Tobacco 05/31/25 08:04 e-Cigarette/Vaping Use Never Used 05/31/25 08:04 PHQ-9: PHQ-9 Score PHQ-9: Total score 7 05/31/25 08:04 Depression Screening Interpretation: Negative Thrive Assessment: Date of Thrive Assessment Date Thrive assessed 03/07/25 05/31/25 08:04 Currently or been in a relationship where the following occur: No concerns reported Coding Level of Care Code Tele Est Pt Level 4 (50322) Diagnoses Anxiety and depression F41.9; F32.A Assessment & Plan Assessment & Plan (1) Anxiety and depression: Code(s): F41.9 - Anxiety disorder, unspecified; F32.A - Depression, unspecified Category: Medical Plan: - Start taking Escitalopram 10 mg once a day. - Take the medication at night, as it may make you feel tired. - Your prescription has been sent to the [facility] on [facility] in [place]. - If you do not feel better after a couple of weeks, you can increase your dose to one and a half pills (15 mg). If that is still not enough, you can take two pills (20 mg). - Do not stop taking this medication suddenly. Please call me if you want to stop it so we can lower the dose slowly. - Let your therapist know that you have started this medication. - We will have another telehealth appointment in four weeks to see how you are doing. Medications: New escitalopram oxalate (Lexapro) 10 mg PO DAILY 30 tabs 1RF F32.A - Depression, unspecified, F41.9 - Anxiety disorder, unspecified
== END 2025-05-31 08:43 | disposition home or self-care (01) ==
LOC: HO.HMCC 07:23
PROVIDERS: PCP Internal Medicine; Visit Provider Internal Medicine
DX: F41.9 Anxiety disorder, unspecified (principal); F32.A Depression, unspecified

== ENCOUNTER 2025-06-27 07:45 | Outpatient (AMB) | payer OTHER, SELFPAY ==
--- OUTSIDE RECORDS SUMMARY | 2025-06-27 07:48 | XMS_ITS | Encounter Summary ---
Author Organization [facility] Address [address] [place] [address] Phone Care Team Providers Care Labor Delivery Specialist Name Role Phone Jaqueline Mitchell MD Primary Care Provider Encounter Details Date Type Department Care Team (Late st Contact Info) Description 03/08/2011 Documentation [facility] [place] [address] [place] [address] Family Medicine, Physician [address] [place], [place] [phone] Social History Tobacco Use Types Packs/Day Years [...] on filedocumented in this encounter Care Teams Labor Delivery Specialist Relationship Specialty Start Date End Date Jaqueline Mitchell MD [address] [place] [address] CAM Blue [address] PCP - General 02/07/17 10/09/22 documented as of this encounter
--- OUTSIDE RECORDS SUMMARY | 2025-06-27 07:48 | XMS_ITS | Encounter Summary ---
Author Organization [facility] Address [address] [place] [address] Phone Care Team Providers Care Sales Development Director Name Role Phone Jaqueline Mitchell MD Primary Care Provider Encounter Details Date Type Department Care Team (Late st Contact Info) Description 12/11/2015 Documentation [facility] [place] [address] [place] [address] Family Medicine, Physician [address] [place], [place] [phone] Social History Tobacco Use Types Packs/Day Years [...] on filedocumented in this encounter Care Teams Sales Development Director Relationship Specialty Start Date End Date Jaqueline Mitchell MD [address] [facility] CAM Blue [address] PCP - General 02/07/17 10/09/22 documented as of this encounter
--- OUTSIDE RECORDS SUMMARY | 2025-06-27 07:48 | XMS_ITS | Encounter Summary ---
Author Organization [facility] Address [address] [place] [address] Phone Care Team Providers Care Collection Agent Name Role Phone Jaqueline Mitchell MD Primary Care Provider [phone] Encounter Details Date Type Department Care Team (Late st Contact Info) Description 02/13/2017 Conversion Encounter [facility] [place] [address] [place] [address] Social History Tobacco Use Types Packs/Day Years [...] on filedocumented in this encounter Care Teams Collection Agent Relationship Specialty Start Date End Date Jaqueline Mitchell MD [address] [place] [address] PCP - General 02/07/17 10/09/22 documented as of this encounter
--- OUTSIDE RECORDS SUMMARY | 2025-06-27 07:48 | XMS_ITS | Clinical Summary ---
Author Organization [facility] Address [address] [place] [address] Phone Care Team Providers Care Supervisor Garage Name Role Phone Joceline Mcmahon MD Primary Care Provider Allergies Active Allergy Reactions Criticality Noted Date Comments Amoxicillin 05/02/2022 Cephalexin 05/02/2022 Medications escitalopram (LEXAPRO) 20 mg tablet Take 1 tablet (20 mg total) by mouth 1 (one) time each day. 4 Active docusate sodium (COLACE) 100 mg capsule Take 1 capsule (100 mg total) by mouth 2 (two) times a day. 4 Active desogestreL-et hinyl estradioL (Apri) 0.15-0.03 mg per tablet TAKE 1 TABLET BY MOUTH EVERY DAY 84 tablet 1 5 Active desogestreL-et hinyl estradioL (Apri) 0.15-0.03 mg per tablet Take 1 tablet by mouth 1 (one) time each day. For 360 days 4 06/06/20 25 Discontinued Surgical History Surgery Date Site/Laterality Comments WISDOM TOOTH EXTRACTION PROCEDURE: HISTORICAL WISDOM TEETH EXTRACTION APPENDECTOMY PROCEDURE: HISTORICAL APPENDECTOMY OTHER SURGICAL HISTORY PROCEDURE: DE UNLISTED LAPAROSCOPY PX INTESTINE XCP RECTUM; COMMENT: [...] EST Office Visit Obstetrics and Gynecology - [address] [address] Nabila Euceda, RE[address] [address] Health Maintenance Due Date Last Done Comments DTaP,Tdap,and Td Vaccines (1 - Tdap) 2015 Hepatitis B Vaccines (1 of 3 - 19+ 3-dose series) 2015 HIV Screening 06/02/2022 Hepatitis C Screening 06/02/2022 Social Influencers of Health Screening 06/02/2022 HPV Vaccines (1 - 3-dose SCD M series) 2023 Depression Screening 06/30/2024 COVID-19 Vaccine (1 - 2024-2 6 season) 2025 Influenza Vaccine [...] RESULTING AGENCY - 05/08/2022 2:30 PM EST [id number] THINPREP PAP, IMAGED: NEGATIVE FOR SQUAMOUS INTRAEPITHELIAL [...] Most Recently Relevant to Health Maintenance Insurance [facility] Care Teams Supervisor Garage Relationship Specialty Start Date End Date Joceline Mcmahon MD [address] [place] [address] PCP - General 05/02/22
--- OUTSIDE RECORDS SUMMARY | 2025-06-27 07:48 | XMS_ITS | Clinical Summary ---
Author Organization [facility] Address [address] [place] [address] Phone Care Team Providers Care Parimutuel Ticket Cashier Name Role Phone Unavailable Primary Care Provider [...] Diabetes asthma Maternal Great-Grandmother M GA: Sudden /DE under age 55 Mother Alive Mother: Alive a nd well Other No family histo ry of *CVA/Stroke, No family history of *Dental caries, No family history of *Sudden /DE under 55, No family history of *Thrombophilia, [...] complete this topic Procedures * Due to [facility] law, this organization might not be sharing sensitive test results. Procedure Name Priority Date/Time Associated Diagnosis Comments CHLAMYDIA AND GONORRHEA, AMPLIFIED Routine 07/31/2010 3:11 PM EST from Last 3 Months or Most Recently Relevant to Health Maintenance Results * Due to [place] [employer] law, this organization might not be sharing sensitive test results. * Chlamydia and Gonorrhoea, Amplified (07/31/2010 3:11 PM EST) [facility] URINE [employer] AMP PROBE NEGATIVE [facility] Comment: NO NEISSERIA GONORRHOEAE RNA DETECTED IN THIS PATIENT'S SAMPLE. (REFERENCE RANGE/NORMAL VALUE: NOT DETECTED) NOTE: THIS TEST USES MACHINE OILER MEDIATED AMPLIFICATION METHOD TO DETECT rRNA FROM [...] OTHER AGENTS. URINE CHLAMYDIA AMP PROBE NEGATIVE [facility] Comment: NO CHLAMYDIA TRACHOMATIS RNA DETECTED IN THIS PATIENT'S SAMPLE. (REFERENCE RANGE/NORMAL VALUE: NOT DETECTED) 07/31/2010 3:11 PM EST Narrative [facility] - 07/31/2010 3:11 PM EST URINE CHLAMYDIA GC AMP PROBE us Devika Markham NP LAB MICROBIOLOGY - GENERA L ORDERABLES Final Result [facility] [address] [place] [address], [place] from Last 3 Months or Most Recently Relevant to Health Maintenance
--- OUTSIDE RECORDS SUMMARY | 2025-06-27 07:48 | XMS_ITS | Encounter Summary ---
Author Organization [facility] Address [address] [place] [address] Phone Care Team Providers Care Campus Rep Name Role Phone Jaqueline Mitchell MD Primary Care Provider Encounter Details Date Type Department Care Team (Late st Contact Info) Description 09/18/2009 Documentation [facility] [place] Family Medicine [address] [place] [address] Family Medicine, Physician [address] [place], [place] [phone] Social History Tobacco Use Types Packs/Day Years [...] on filedocumented in this encounter Care Teams Campus Rep Relationship Specialty Start Date End Date Jaqueline Mitchell MD [address] [place] [address] CAM Blue [address] PCP - General 02/07/17 10/09/22 documented as of this encounter
--- OUTSIDE RECORDS SUMMARY | 2025-06-27 07:48 | XMS_ITS | Encounter Summary ---
Author Organization [facility] Address [address] [place] [address] Phone Care Team Providers Care Kitchen Worker Name Role Phone Jaqueline Mitchell MD Primary Care Provider Encounter Details Date Type Department Care Team (Late st Contact Info) Description 09/18/2009 Documentation [facility] [place] [address] [place] [address] Family Medicine, Physician [address] [place], [place] [phone] Social History Tobacco Use Types Packs/Day Years [...] on filedocumented in this encounter Care Teams Kitchen Worker Relationship Specialty Start Date End Date Jaqueline Mitchell MD [address] [place] [address] CAM Blue [address] PCP - General 02/07/17 10/09/22 documented as of this encounter
--- OUTSIDE RECORDS SUMMARY | 2025-06-27 07:48 | XMS_ITS | Encounter Summary ---
Author Organization [facility] Address [address] [place] [address] Phone Care Team Providers Care Hat Lining Blocker Name Role Phone Jaqueline Mitchell MD Primary Care Provider [phone] Encounter Details Date Type Department Care Team (Late st Contact Info) Description 09/22/2009 Documentation [facility] [place] [address] [place] [address] Family Medicine, Physician [address] [place], [place] [phone] Social History Tobacco Use Types Packs/Day Years [...] on filedocumented in this encounter Care Teams Hat Lining Blocker Relationship Specialty Start Date End Date Jaqueline Mitchell MD [address] [place] [address] CAM Blue [address] PCP - General 02/07/17 10/09/22 documented as of this encounter
--- OUTSIDE RECORDS SUMMARY | 2025-06-27 07:48 | XMS_ITS | Encounter Summary ---
Author Organization [facility] Address [address] [place] [address] Phone Care Team Providers Care Commissions Manager Name Role Phone Jaqueline Mitchell MD Primary Care Provider Encounter Details Date Type Department Care Team (Late st Contact Info) Description 01/28/2011 Documentation [facility] [place] Medicine [address] [place] [address] Family Medicine, Physician [address] [place], [place] [phone] Social History Tobacco Use Types Packs/Day Years [...] on filedocumented in this encounter Care Teams Commissions Manager Relationship Specialty Start Date End Date Jaqueline Mitchell MD [address] [place] [address] CAM Blue [address] PCP - General 02/07/17 10/09/22 documented as of this encounter
--- OUTSIDE RECORDS SUMMARY | 2025-06-27 07:48 | XMS_ITS | Encounter Summary ---
Author Organization [facility] Address [address] [place] [address] Phone Care Team Providers Care Tire Servicer Name Role Phone Jaqueline Mitchell MD Primary Care Provider Encounter Details Date Type Department Care Team (Late st Contact Info) Description 02/12/2010 Documentation [facility] [place] Family Medicine [address] [place] [address] Family Medicine, Physician [address] [place], [place] [phone] Social History Tobacco Use Types Packs/Day Years [...] on filedocumented in this encounter Care Teams Tire Servicer Relationship Specialty Start Date End Date Jaqueline Mitchell MD [address] [place] [address] CAM Blue [address] PCP - General 02/07/17 10/09/22 documented as of this encounter
--- OUTSIDE RECORDS SUMMARY | 2025-06-27 07:48 | XMS_ITS | Encounter Summary ---
Author Organization [facility] Address [address] [place] [address] Phone Care Team Providers Care Rattlesnake Farmer Name Role Phone Jaqueline Mitchell MD Primary Care Provider Encounter Details Date Type Department Care Team (Late st Contact Info) Description 09/14/2009 Documentation [facility] [place] [address] [place] [address] Family Medicine, Physician [address] [place], [place] [phone] Social History Tobacco Use Types Packs/Day Years [...] on filedocumented in this encounter Care Teams Rattlesnake Farmer Relationship Specialty Start Date End Date Jaqueline Mitchell MD [address] [place] [address] CAM Blue [address] PCP - General 02/07/17 10/09/22 documented as of this encounter
--- NOTE | 2025-06-27 07:56 | A.OFFPC_ITS ---
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 ? throat closing cefprozil Allergy (Severe, Verified 06/27/25 13:58) hives,rash cephalexin Allergy (Severe, Verified 06/27/25 13:58) Hives,rash Medication List - Last Reconciled 06/27/25 by Joceline Mcmahon MD desogestrel-ethinyl estradiol 0.15-0.03 mg (Apri) 1 tab PO DAILY dicyclomine 10 mg PO BID 90 days escitalopram oxalate (Lexapro) 10 mg PO DAILY famotidine 40 mg PO BEDTIME Tobacco use date assessed: 05/31/25 Dental Screening Dental Screen Date: 05/31/25 HPI 4 week follow up HPI Details Telehealth visit made with a 30-year-old lady, here today for follow-up regarding her anxiety and depression. She was started on escitalopram 10 mg once a day, and states that medicine has only been helping partially in controlling her mood swings and anxiety attacks. Would like to see if she can go on a higher dose. Reports still having occasional heartburn episodes at night, despite taking famotidine 40 mg at bedtime. Has been avoiding all triggers for heartburn States that bowel movements have now become regular and constipation has resolved ever since taking dicyclomine 10 mg 1 tablet twice a day. [facility] [place] Medical History Anxiety and depression Excessive daytime sleepiness Influenza A Irritable bowel syndrome with mixed bowel habits Heartburn Hiatal hernia Gastric reflux Scoliosis Vitamin D deficiency Obesity (BMI 30.0-34.9) Psoriasis of scalp Insomnia Surgical History Hx of lumbar discectomy Hx of lymph node excision Hx of esophagogastroduodenoscopy Hx of colonoscopy History of appendectomy Family History Father HTN (hypertension) Diabetes mellitus Mental health disorder Brother No problems noted. Sister No problems noted. Sister No problems noted. Sister No problems noted. Sister No problems noted. 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 2. Feeling down, depressed, or hopeless: not at all 3. Trouble falling or staying asleep, or sleeping too much: nearly every day 4. Feeling tired or having little energy: several days 5. Poor appetite or overeating: not at all 6. Feeling bad about yourself - or that you are a failure or have let yourself or your family down: not at all 7. Trouble concentrating on things, such as reading the newspaper or watching television: not at all 8. Moving or speaking so slowly that other people could have noticed. Or the opposite - being so fidgety or restless that you have been moving around a lot more than usual: not at all 9. Thoughts that you would be better off or of hurting yourself in some way: not at all Depression Screening Interpretation: Negative Depression Screening Done: Yes Source: Developed by Drs. Abdirahman Gill, Denise Bermudez, Damian Delaney and colleagues, with an educational pascual from [employer]. Thrive Questionnaire Date Thrive assessed: 03/07/25 I am a: Patient What is your living situation today?: I have a steady place to live Within the past 12 months, did the food you bought not last and you didn't have the money to get more?: Never true Within the past 12 months, did you worry whether your food would run out before you got money to buy more?: Never true Do you have trouble paying for medicines?: No Do you have trouble getting transportation to medical appointments?: No Do you have trouble paying your heating and electricity bill?: No Do you have trouble taking care of your child, family member or friend?: No Do you have trouble with day-to-day activities such as bathing, preparing meals, shopping, managing finances, etc.?: No Are you currently unemployed and looking for a job?: No Are you interested in more education?: No Currently or been in a relationship where the following occur: No concerns reported THRIVE Score: 0 OPOL-7 AMB Questionnaire POOL-7 Date POOL - 7 assessed: 06/27/25 Feeling nervous, anxious, or on edge: 1 = Several days Not being able to stop or control worryin = Several days Worrying too much about different things: 1 = Several days Trouble relaxin = Not at all Being so restless that it is hard to sit still: 0 = Not at all Becoming easily annoyed or irritable: 1 = Several days Feeling afraid as if something awful might happen: 0 = Not at all Total POOL-7 score (0-4 normal; 5-9 mild; 10-14 moderate; 15-21 severe): 4 Source: Developed by Drs. Abdirahman Gill, Denise Bermudez, Damian Delaney and colleagues, with an educational pascual from [employer]. POOL-7 Assessment Billing POOL-7 Assessment Tool: POOL-7 Assessment 71404 Review of Systems Const Reports weight loss ENT Reports no additional complaints Card Denies chest pain, Denies irregular heart rhythm, Denies lightheadedness and Denies dyspnea Resp Denies dyspnea GI Reports no additional complaints Reports no additional complaints Musc Reports no additional complaints Neuro Reports no additional complaints Psych Reports as per HPI Endo Reports no additional complaints Chavez/Lymph Reports no additional complaints Physical exam (Primary Care) Tobacco/Smoking Status: Tobacco use Status Tobacco use date assessed 05/31/25 06/27/25 07:58 Patient Tobacco Use Status Never used Tobacco 06/27/25 07:58 e-Cigarette/Vaping Use Never Used 06/27/25 07:58 Depression Screening Interpretation: Negative Thrive Assessment: Date of Thrive Assessment Date Thrive assessed 03/07/25 06/27/25 07:58 Currently or been in a relationship where the following occur: No concerns reported Telehealth Telehealth Telehealth Platform: [facility] Location of provider rendering services: practice address Location of patient: address on file Patient Identification confirmed using: Name, : Yes Telehealth method: video Patient verbally consented to treatment: Yes Patient verbally consented to billing insurance company: Yes Patient informed of any privacy concerns related to visit: Yes Minutes spent on Phone/Video with Pt.: 20 Coding Level of Care Code Tele Est Pt Level 4 (45854) Diagnoses Anxiety and depression F41.9; F32.A Heartburn R12 Irritable bowel syndrome with mixed bowel habits K58.2 Additional Codes POOL-7 Assessment Billing - POOL-7 Assessment Tool: POOL-7 Assessment 32711 ([id number]) Assessment & Plan Assessment & Plan (1) Anxiety and depression: Code(s): F41.9 - Anxiety disorder, unspecified; F32.A - Depression, unspecified Category: Medical Plan: Advised to slowly increase dose of escitalopram to 15 mg once a day for the 1st week and see if this is enough in controlling her anxiety , otherwise to go up to 20 mg daily. Schedule telehealth all office visit for follow-up in 4 weeks (2) Heartburn: Code(s): R12 - Heartburn Category: Medical Plan: Continue with famotidine, patient reminded that she has an appointment for an upper GI series scheduled next month at [facility]. (3) Irritable bowel syndrome with mixed bowel habits: Code(s): K58.2 - Mixed irritable bowel syndrome Category: Medical Plan: Doing better on dicyclomine, continue taking 10 mg twice a day
== END 2025-06-27 09:17 | disposition home or self-care (01) ==
LOC: HO.HMCC 07:45
PROVIDERS: PCP Internal Medicine; Visit Provider Internal Medicine
DX: F41.9 Anxiety disorder, unspecified (principal); F32.A Depression, unspecified; R12 Heartburn; K58.2 Mixed irritable bowel syndrome

== ENCOUNTER → 2025-06-27 07:45 | Outpatient (BNVA) | payer OTHER, SELFPAY | PROVIDERS: PCP Internal Medicine; Visit Provider Internal Medicine | DX: R12 Heartburn (principal); K58.2 Mixed irritable bowel syndrome; F41.9 Anxiety disorder, unspecified; F32.A Depression, unspecified | CPT/HCPCS: 96127 ==